=== PATIENT | male | born 1990 | race Caucasian/White ===

== ENCOUNTER 2025-05-11 22:17 | Inpatient (IN) ==
--- NOTE | 2025-05-11 22:46 | Emergency Department Note ---
History of Present Illness General Chief complaint: Back Injury/Pain Stated complaint: BACK PAIN COMPLICATIONS FROM SURGERY Time Seen by Provider: 05/11/25 22:25 History of Present Illness Maximum Pain Intensity: 9 This 35-year-old male who had back surgery 2 months ago by orthopedic spine presents ER for worsening pain in his leg. He states he called his parts specialist and was advised to get an MRI. Patient complains of severe pain to the right foot that tracks up to the leg. Patient denies loss of bowel bladder control, saddle anesthesia, fever, chills, leg weakness. Dr Wolf is his surgeon. Home Medications Medication Instructions Recorded Confirmed Type baclofen 10 mg tablet 10 mg PO TID PRN muscle spasm #60 04/04/25 05/12/25 Rx tabs gabapentin 600 mg tablet 600 mg PO TID #90 tabs 05/01/25 05/12/25 Rx Allergies Allergy/AdvReac Type Severity Reaction Status Date / Time promethazine Allergy Intermediate "FREAKED Verified 04/03/25 10:56 OUT" Past Med/Surg History Problem List (Updated 05/12/25 @ 01:39 by Demi Scales PA-C) Lumbar radiculopathy (Acute) Intractable low back pain (Acute) Paresthesia of right foot Right foot pain S/P lumbar discectomy Lumbosacral stenosis without neurogenic claudication Disc degeneration, lumbosacral Lumbosacral radiculopathy Lumbosacral disc herniation L5-S1 Medical History Chewing tobacco nicotine dependence Right-sided low back pain with sciatica Obesity (BMI 30.0-34.9) Surgical History No pertinent past surgical history Family History Grandmother (Maternal) Diabetes Brother Diabetes Denies family history of Sudden Ovarian cancer Prostate cancer Heart disease Myocardial infarction Breast cancer Lung cancer Cancer Social History Smoking Status: Never smoker Tobacco Type: Smokeless Tobacco (Dip or Chew) Second Hand Exposure: No; Do You Dip or Chew Tobacco: Yes; Hx Alcohol Use: No Hx Substance Use: No Preferred Language: Icelandic Communication Ability: Effective Reed Polisher Required: No Beliefs That Will Affect Care: None marital status: Current Living Situation: Spouse current occupational status: employed current occupation: Construction (Builder) How many Children do You have: 1 Feels Safe at Home: Yes Childhood Exposure to Second-Hand Smoke: No Diet: regular caffeine: Yes Dental Care, Regularly: No Physical Activity Frequency: Daily Assistive Devices: None Review of Systems A total of 10 systems reviewed and were otherwise negative Physical Exam Vital Signs Vital Signs - 24 hr 05/11/25 22:17 05/11/25 22:20 05/11/25 22:34 Temperature 36.9 C Temperature Source Temporal Artery Scan Pulse Rate 91 H 86 Pulse Rate [Finger] Pulse Rate from SpO2 Sensor Respiratory Rate 19 Respiratory Effort / Characteristics Non-Labored Non-Labored Spontaneous Respiratory Depth Normal Normal Blood Pressure 130/93 Blood Pressure Mean 105 Pulse Oximetry 97 Oxygen Delivery Method Room Air Sepsis Recent Fever Within 48 Hours No Sepsis New/Unexplained Change in Mental Status N/A Sepsis Action Taken by Nursing No Action Required 05/11/25 22:39 05/11/25 23:03 05/11/25 23:15 Temperature Temperature Source Pulse Rate 79 72 75 Pulse Rate [Finger] Pulse Rate from SpO2 Sensor 81 75 Respiratory Rate 22 21 18 Respiratory Effort / Characteristics Respiratory Depth Blood Pressure Blood Pressure Mean Pulse Oximetry 95 98 Oxygen Delivery Method Sepsis Recent Fever Within 48 Hours Sepsis New/Unexplained Change in Mental Status Sepsis Action Taken by Nursing 05/11/25 23:21 05/11/25 23:54 05/12/25 00:00 Temperature Temperature Source Pulse Rate Pulse Rate [Finger] 87 Pulse Rate from SpO2 Sensor 68 74 Respiratory Rate 16 18 Respiratory Effort / Characteristics Respiratory Depth Blood Pressure Blood Pressure Mean Pulse Oximetry 97 97 97 Oxygen Delivery Method Room Air Sepsis Recent Fever Within 48 Hours Sepsis New/Unexplained Change in Mental Status Sepsis Action Taken by Nursing 05/12/25 00:03 05/12/25 00:15 05/12/25 00:20 Temperature Temperature Source Pulse Rate Pulse Rate [Finger] Pulse Rate from SpO2 Sensor 77 79 Respiratory Rate 14 17 Respiratory Effort / Characteristics Respiratory Depth Blood Pressure 130/94 Blood Pressure Mean 104 Pulse Oximetry 96 96 Oxygen Delivery Method Sepsis Recent Fever Within 48 Hours Sepsis New/Unexplained Change in Mental Status Sepsis Action Taken by Nursing 05/12/25 00:20 05/12/25 01:00 05/12/25 01:15 Temperature Temperature Source Pulse Rate 67 65 Pulse Rate [Finger] Pulse Rate from SpO2 Sensor 66 65 Respiratory Rate 19 15 Respiratory Effort / Characteristics Respiratory Depth Blood Pressure 130/94 Blood Pressure Mean 104 Pulse Oximetry 96 95 Oxygen Delivery Method Sepsis Recent Fever Within 48 Hours Sepsis New/Unexplained Change in Mental Status Sepsis Action Taken by Nursing 05/12/25 01:27 05/12/25 01:36 05/12/25 01:53 Temperature Temperature Source Pulse Rate 61 65 Pulse Rate [Finger] Pulse Rate from SpO2 Sensor 62 69 Respiratory Rate 14 17 Respiratory Effort / Characteristics Respiratory Depth Blood Pressure 131/83 Blood Pressure Mean 94 Pulse Oximetry 96 96 Oxygen Delivery Method Sepsis Recent Fever Within 48 Hours Sepsis New/Unexplained Change in Mental Status Sepsis Action Taken by Nursing 05/12/25 01:57 05/12/25 02:00 05/12/25 02:06 Temperature Temperature Source Pulse Rate 58 L 64 Pulse Rate [Finger] Pulse Rate from SpO2 Sensor 60 69 Respiratory Rate 19 13 Respiratory Effort / Characteristics Non-Labored Respiratory Depth Normal Blood Pressure Blood Pressure Mean Pulse Oximetry 97 93 Oxygen Delivery Method Sepsis Recent Fever Within 48 Hours Sepsis New/Unexplained Change in Mental Status Sepsis Action Taken by Nursing 05/12/25 02:26 Temperature Temperature Source Pulse Rate 56 L Pulse Rate [Finger] Pulse Rate from SpO2 Sensor Respiratory Rate Respiratory Effort / Characteristics Respiratory Depth Blood Pressure Blood Pressure Mean Pulse Oximetry Oxygen Delivery Method Sepsis Recent Fever Within 48 Hours Sepsis New/Unexplained Change in Mental Status Sepsis Action Taken by Nursing VITALS: Vitals are noted on the nurse's note and reviewed by myself. Vital signs stable. GENERAL: White male with present, in no acute distress, nondiaphoretic, well-developed well-nourished. SKIN: Capillary reflex less than 2 seconds. HEENT: Normocephalic. PERRLA. EOMI. Nares patent. Mucous membranes moist. Neck is supple without nuchal rigidity. HEART: Regular rate and rhythm LUNGS: Clear to auscultation bilaterally without wheezes, rales or rhonchi. No retractions or accessory muscle use. ABDOMEN: Positive bowel sounds x 4. Normal tympanic percussion. Soft, nontender, without masses or organomegaly. Cowart sign negative. No guarding or rebound tenderness. no CVA tenderness MUSCULOSKELETAL: No gross musculoskeletal defects. No thoracic or lumbar tenderness. Positive straight leg raise on the right. Negative on the left. NEURO: Patient was alert and oriented to person place and time. No focal neurological deficits. Course Administered Medications Hydromorphone HCl (Hydromorphone Inj 0.5 Mg/0.5 Ml Syr) 0.5 mg IV Q15M PRN PRN Reason: Pain Stop: 05/26/25 01:37 Last Admin: 05/12/25 03:01 Dose: 0.5 mg Documented By: Admin: 05/12/25 01:51 Dose: 0.5 mg Documented By: ESPERANZA Discontinued Medications Ketorolac Tromethamine (Ketorolac Tromethamine 15 Mg/Ml Vial) 10 mg IV NOW STA Stop: 05/11/25 22:39 Last Admin: 05/11/25 22:59 Dose: 10 mg Documented By: ESPERANZA Morphine Sulfate (Morphine Sulfate 4 Mg/Ml 1 Ml Carp\\Vial) 4 mg IV NOW STA Stop: 05/11/25 22:39 Last Admin: 05/11/25 22:59 Dose: 4 mg Documented By: ESPERANZA Morphine Sulfate (Morphine Sulfate 4 Mg/Ml 1 Ml Carp\\Vial) 4 mg IV NOW STA Stop: 05/12/25 00:20 Last Admin: 05/12/25 00:31 Dose: 4 mg Documented By: RUBIA Ondansetron HCl (Ondansetron Inj 2 Mg/Ml 2 Ml Vial) 4 mg IV NOW STA Stop: 05/11/25 22:39 Last Admin: 05/11/25 22:59 Dose: 4 mg Documented By: ESPERANZA Medical Decision Making Medical Records Attestation: I reviewed the patient's medical records. Home Medications Current Medication List: was personally reviewed by me Laboratory Data Attestation: I reviewed the patient's lab results. 05/11/25 23:00 05/11/25 23:00 Lab Results 05/11/25 Range/Units 23:00 WBC 10.22 (4.8-10.8) K/ul RBC 5.12 (4.70-6.10) M/uL Hgb 15.3 (14.0-18.0) g/dl Hct 43.9 (42.0-52.0) % MCV 85.7 (80.0-100.0) fL MCH 29.9 (25.0-34.0) pg MCHC 34.9 (32.0-36.0) g/dL RDW Std Deviation 36.2 L (36.4-46.3) fL RDW Coeff of Ruben 11.6 (11.5-14.5) % Plt Count 238 (130-400) K/uL MPV 9.5 (9.4-12.4) fL Immature Gran % (Auto) 0.3 % Neut % (Auto) 48.9 % Lymph % (Auto) 39.5 % Creek % (Auto) 9.7 % Eos % (Auto) 1.3 % Baso % (Auto) 0.3 % Neut # (Auto) 5.00 (1.40-6.50) K/uL Lymph # (Auto) 4.04 H (1.20-3.40) K/uL Creek # (Auto) 0.99 H (0.11-0.59) K/uL Eos # (Auto) 0.13 (0.00-0.50) K/uL Baso # (Auto) 0.03 (0.00-0.20) K/uL Immature Gran # (Auto) 0.03 (0.01-0.20) K/uL Sodium 138 (136-145) mmol/L Potassium 4.3 (3.5-5.1) mmol/L Chloride 107 (98-107) mmol/L Carbon Dioxide 23 (21-32) mmol/L Anion Gap 8 (3-11) BUN 13 (6-23) mg/dl Creatinine 0.99 (0.6-1.4) mg/dl Est Cr Clr Drug Dosing 131.7 ml/min eGFR 103.15 BUN/Creatinine Ratio 13.1 (10-20) Glucose 97 (70-99(Fasting)) mg/dl Calcium 9.3 (8.6-10.3) mg/dl Total Bilirubin 1.4 H (0.2-1.0) mg/dl AST 36 (13-39) U/L ALT 46 (7-52) U/L Alkaline Phosphatase 61 (34-104) U/L Total Protein 6.7 (6.0-8.3) gm/dl Albumin 4.2 (3.4-5.0) gm/dl Globulin 2.5 (2.5-4.0) gm/dl Albumin/Globulin Ratio 1.7 (0.9-2) Imaging Data Attestation: I personally reviewed and interpreted this imaging study as follows: Radiologist's Impression: Lumbar Spine MRI 05/11/25 22:38 Exam(s): MRI L SPINE Without Contrast EXAM: MR Lumbar Spine Without Intravenous Contrast CLINICAL HISTORY: Reason for exam: severe pain, right leg pain/weak. TECHNIQUE: Magnetic resonance images of the lumbar spine without intravenous contrast in multiple planes. COMPARISON: Comparison made to prior MRI of the lumbar spine from April 03, 2025. FINDINGS: Vertebrae: There are 5 lumbar type vertebral bodies with a mild generalized curved to the left and shallow lumbar lordosis. There is a remote fracture deformity of the L1 vertebral body. There is normal vertebral body height and alignment. The bone marrow signal is heterogeneous with reactive endplate changes. No acute fracture. Spinal cord: The conus is normal size, shape and signal characteristics, terminating at T12-L1. Soft tissues: The iliopsoas, paraspinous, and interspinous soft tissues are unremarkable. The aorta and IVC flow voids are intact. The visualized kidneys are unremarkable. DISCS/SPINAL CANAL/NEURAL FORAMINA: L1-L2: The intervertebral disc is normal. L2-L3: The intervertebral disc is normal. L3-L4: The intervertebral disc is normal. L4-L5: There is mild disc degeneration with annular disc bulge causing a mild subarticular recess stenosis with disc extending to the neural foramina causing a mild right stenosis without evidence of neural impingement. L5-S1: Advanced disc degeneration with annular disc bulge and superimposed right 8.6 mm disc protrusion posteriorly displacing and impinging the transiting right S1 nerve root in the subarticular recess. There is disc and osteophyte extending to the neural foramina causing mild bilateral stenosis IMPRESSION: Advanced disc degeneration at L5-S1 with annular disc bulge and superimposed 8.6 mm right disc protrusion posteriorly displacing and impinging the transiting right S1 nerve root in the subarticular recess. Note: Compared to prior MRI of the lumbar spine from April 03, 2025, there is been interval decrease in size of the right disc herniation at L5-S1 Electronically signed by: Claudine Lamar MD 05/12/25 01:25 AM [facility] Narrative Prior records/ancillary studies reviewed. Triage Nursing notes reviewed. Additional history obtained from family. The patient's history was concerning for back pain. Differential diagnosis: Etiologies such as musculoskeletal, disc herniation, fracture, aortic disease, metastatic disease, cord compression, discitis, infection, renal colic, gastrointestinal, acute exacerbation of chronic back pain, sciatica, cauda equina, as well as others were entertained. Physical findings: As above. No focal neurologic findings noted. ER treatment provided: Toradol, morphine, Zofran was ordered On reassessment the patient felt better. Diagnostics interpreted by me: The labs Independently Interpreted by myself revealed no worrisome leukocytosis, stable H&H, glucose 97 Imaging studies: Imaging was reviewed and read by radiology Consultation: A consultation was placed with hospitalist. The case was discussed and diagnostics were reviewed. Patient will be evaluated for possible admission. This appears to be consistent with intractable low back pain. Patient states he was in too much pain to go home. He was given several rounds of pain meds. He was still extremely uncomfortable. Imaging shows no significant changes. Medicine was consulted and the case was discussed. He will be evaluated for possible admission.. By the evaluation outlined above emergent etiologies such as fracture, aortic disease, metastatic disease, infection, renal colic, gastrointestinal, cord compression, cauda equina, as well as others were deemed relatively unlikely. The pt informed about the findings as listed above. All questions were answered and pleased with the treatment. The chart was completed utilizing [employer] Speech voice recognition software. Grammatical errors, random word insertions, pronoun errors, and incomplete sentences are an occassional consequence of this system due to software limitations, ambient noise, and hardware issues. Any formal questions or concerns about the content, text, or information contained within the body of this dictation should be directly addressed to the physician assistant professor of mathematics for clarification. Impression & Plan Intractable low back pain, Lumbar radiculopathy Discharge Plan Visit Data Chief Complaint: Back Injury/Pain Stated Complaint: BACK PAIN COMPLICATIONS FROM SURGERY ED Provider: Mundo Rivera ED Midlevel Provider: Demi Scales Discharge Problem: Intractable low back pain, Lumbar radiculopathy Patient Disposition: Being Evaluated by Hospitalist Condition: Good Forms Stand Alone Forms: My [facility] My [employer] Prescriptions Prescriptions: No Action gabapentin 600 mg tablet 600 mg PO TID Qty: 90 1RF baclofen 10 mg Tablet 10 mg PO TID PRN (Reason: muscle spasm) Qty: 60 0RF Referrals Referrals: Chace Lin DO [Primary Care Provider] -
[2025-05-11] MEDS: ONDANSETRON INJ 2 MG/ML 2 ML VIAL IV STA (22:59)
[2025-05-11] MEDS: KETOROLAC TROMETHAMINE 15 MG/ML VIAL IV STA (22:59)
[2025-05-11] MEDS: MoRPHine SULFATE 4 MG/ML 1 ML CARP\\VIAL IV STA (22:59)
[2025-05-11 23:14] LABS: Basophils # (auto) 0.03 K/uL (0.00-0.20); Basophils % (auto) 0.3 %; Eosinophils # (auto) 0.13 K/uL (0.00-0.50); Eosinophils % (auto) 1.3 %; Hematocrit (blood only) 43.9 % (42.0-52.0); Hemoglobin 15.3 g/dl (14.0-18.0); Immature Granulocytes # (auto) 0.03 K/uL (0.01-0.20); Immature Granulocytes % (auto) 0.3 %; Lymphocytes # (auto) 4.04 K/uL (1.20-3.40); Lymphocytes % (auto) 39.5 %; Mean Corpuscular Hemoglobin 29.9 pg (25.0-34.0); Mean Corpuscular Hgb Conc 34.9 g/dL (32.0-36.0); Mean Corpuscular Volume 85.7 fL (80.0-100.0); Mean Platelet Volume 9.5 fL (9.4-12.4); Monocytes # (auto) 0.99 K/uL (0.11-0.59); Monocytes % (auto) 9.7 %; Neutrophils % (auto) 48.9 %; Platelet Count 238 K/uL (130-400); RDW Coefficient of Variation 11.6 % (11.5-14.5); RDW Standard Deviation 36.2 fL (36.4-46.3); Red Blood Count 5.12 M/uL (4.70-6.10); White Blood Count 10.22 K/ul (4.8-10.8)
[2025-05-11 23:38] LABS: Bilirubin,Total 1.4 mg/dl (0.2-1.0); Calcium 9.3 mg/dl (8.6-10.3); Potassium 4.3 mmol/L (3.5-5.1)
[2025-05-11 23:44] LABS: Albumin Globulin Ratio 1.7 (0.9-2); BUN Creatinine Ratio 13.1 (10-20); Creatinine Clr Calc Pharmacy 131.7 ml/min; Globulin 2.5 gm/dl (2.5-4.0); Total Protein 6.7 gm/dl (6.0-8.3)
[2025-05-12] MEDS: MoRPHine SULFATE 4 MG/ML 1 ML CARP\\VIAL IV STA (00:31)
--- NOTE | 2025-05-12 01:26 | Magnetic Resonance Report ---
Exam(s): MRI L SPINE Without Contrast EXAM: MR Lumbar Spine Without Intravenous Contrast CLINICAL HISTORY: Reason for exam: severe pain, right leg pain/weak. TECHNIQUE: Magnetic resonance images of the lumbar spine without intravenous contrast in multiple planes. COMPARISON: Comparison made to prior MRI of the lumbar spine from April 03, 2025. FINDINGS: Vertebrae: There are 5 lumbar type vertebral bodies with a mild generalized curved to the left and shallow lumbar lordosis. There is a remote fracture deformity of the L1 vertebral body. There is normal vertebral body height and alignment. The bone marrow signal is heterogeneous with reactive endplate changes. No acute fracture. Spinal cord: The conus is normal size, shape and signal characteristics, terminating at T12-L1. Soft tissues: The iliopsoas, paraspinous, and interspinous soft tissues are unremarkable. The aorta and IVC flow voids are intact. The visualized kidneys are unremarkable. DISCS/SPINAL CANAL/NEURAL FORAMINA: L1-L2: The intervertebral disc is normal. L2-L3: The intervertebral disc is normal. L3-L4: The intervertebral disc is normal. L4-L5: There is mild disc degeneration with annular disc bulge causing a mild subarticular recess stenosis with disc extending to the neural foramina causing a mild right stenosis without evidence of neural impingement. L5-S1: Advanced disc degeneration with annular disc bulge and superimposed right 8.6 mm disc protrusion posteriorly displacing and impinging the transiting right S1 nerve root in the subarticular recess. There is disc and osteophyte extending to the neural foramina causing mild bilateral stenosis IMPRESSION: Advanced disc degeneration at L5-S1 with annular disc bulge and superimposed 8.6 mm right disc protrusion posteriorly displacing and impinging the transiting right S1 nerve root in the subarticular recess. Note: Compared to prior MRI of the lumbar spine from April 03, 2025, there is been interval decrease in size of the right disc herniation at L5-S1 Electronically signed by: Claudine Lamar MD 05/12/25 01:25 AM
[2025-05-12] MEDS: HYDROmorphone INJ 0.5 MG/0.5 ML SYR IV PRN ×3 (01:51→16:13)
--- NOTE | 2025-05-12 02:17 | History & Physical Report ---
Date of Service May 12, 2025 Assessment & Plan (1) Lumbar radiculopathy: (2) Right foot pain: (3) Paresthesia of right foot: (4) Lumbosacral disc herniation: Plan #Lumbar radiculopathy/right-sided sciatica - MRI-Lumbar Spine (05/11/25) Advanced disc degeneration at L5-S1 with annular disc bulge and superimposed 8.6 mm right disc protrusion posteriorly displacing and impinging the transiting right S1 nerve root in the subarticular recess. Note: Compared to prior MRI of the lumbar spine from April 03, 2025, there is been interval decrease in size of the right disc herniation at L5-S1 from 1.3 cm to 0.85 cm - pt Rx'ed oxycodone-acetaminophen (5:325 mg) x 6 daily, for 7 days on 04/04/25 but only took 1 tablet (per pt) Pain Management - continue patient's gabapentin, 600 mg, TID; baclofen, 10 mg, PO, TID during hospital stay - dexamethasone, IV, 6 mg, one-time dose before transfer - dexamethasone, IV, 4mg, TID - Dilaudid, 0.5 mg, IV, q3hr - order KPad - pantoprazole, 40 mg, PO, daily for stress ulcer prevention - consult Pain Mgmt, consult pt's Orthopedic Surgeon #Hyperbilirubinemia - chronic, incidental, possibly due to physiological stress - consider trending CMP as outpt Code status: Full code Disposition: Med-Surg FENGI: Regular diet VTE Prophylaxis: SCD's, Knee-high History of Present Illness Chief Complaint: right-sided radiculopathy Primary Care Provider: Chcae Lin, DO Patient is a 35 yo M w/ a PMHx of lumbar radiculopathy (s/p lumbar discectomy), w/ associated Sx such as r. foot paresthesia and pain, lumbosacral disc degeneration and disc herniation noted on previous imaging, and chewing tobacco- dependence, presenting today w/ poorly controlled back pain radiating down r. leg. Patient has been taking gabapentin, 600 mg, PO, TID; baclofen, 10 mg, PO, TID; and methylprednisolone, 4mg, PO, daily. He was also prescribed a week-long course of oxycodone-acetaminophen (5-325 mg), 6 tabs daily, for 7 days but states he only took one of those pills. Patient denies any back pain but does endorse r. lateral and r. dorsal foot pain, paresthesias (burning, stabbing sensation); this pain starts around the Vinson heel area. Patient also endorses some r. thigh posterior pain. His pain does seem to be somewhat position- dependent, worsening when sitting or with his spine in a flexed posture. He notes very little improvement of the pain after surgery and possibly some worsening of that pain over the last few weeks. Allergies Allergy/AdvReac Type Severity Reaction Status Date / Time promethazine Allergy Intermediate "FREAKED Verified 04/03/25 10:56 OUT" Home Medications Medication Instructions Recorded Confirmed Type baclofen 10 mg tablet 10 mg PO TID PRN muscle spasm #60 04/04/25 05/12/25 Rx tabs gabapentin 600 mg tablet 600 mg PO TID #90 tabs 05/01/25 05/12/25 Rx Past Med/Surg History Problem List (Updated 05/12/25 @ 01:39 by Demi Scales PA-C) Lumbar radiculopathy (Acute) Intractable low back pain (Acute) Paresthesia of right foot Right foot pain S/P lumbar discectomy Lumbosacral stenosis without neurogenic claudication Disc degeneration, lumbosacral Lumbosacral radiculopathy Lumbosacral disc herniation L5-S1 Medical History Chewing tobacco nicotine dependence Right-sided low back pain with sciatica Obesity (BMI 30.0-34.9) Surgical History No pertinent past surgical history Family History Grandmother (Maternal) Diabetes Brother Diabetes Denies family history of Sudden Ovarian cancer Prostate cancer Heart disease Myocardial infarction Breast cancer Lung cancer Cancer Social History Smoking Status: Never smoker Tobacco Type: Smokeless Tobacco (Dip or Chew) Second Hand Exposure: No; Do You Dip or Chew Tobacco: Yes; Hx Alcohol Use: No Hx Substance Use: No Preferred Language: Serbian Communication Ability: Effective Hospitality Director Required: No Beliefs That Will Affect Care: None marital status: Current Living Situation: Spouse current occupational status: employed 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 lateral foot especially) Physical Exam Constitutional: WD/WN, vitals as above Respiratory: normal respiratory effort, lungs clear to auscultation Cardiovascular: RRR, no murmur, no edema Extremities: no calf tenderness Neurologic: moves all extremities and awake; + abnormal touch/pain/proprioception (allodynia of r. lateral and dorsal foot noted) decreased hip flexion of r. side secondary to pain Psychiatric: A+Ox3, euthymic affect Results & Data Results & Data Vital Signs (Past 12 Hours) Vital Signs Temp Pulse Pulse Resp BP Pulse Ox O2 Del Method 05/12/25 00:00 87 18 97 Room Air 05/11/25 22:34 86 05/11/25 22:20 36.9 C 91 H 19 130/93 97 Room Air Supervising Physician Co-Signing Physician Notes Attending Attestation & Admit Note: Pt seen/examined, chart reviewed, admit care plan d/w resident physician Dr Fernando Ross. I agree w/ the hedrick components of his admission documentation. 35yo male with recent Right L5-S1 Discectomy by Dr Mundo Wolf on 04/04/25 due to severe right-sided S1 radiculopathy presents with ongoing neuropathic pain in his right foot following the S1 dermatome. (+/- right L5 dermatome, but unlikely). His neuropathic pain has gotten to the point that he is uncomfortable most times of the day and it is difficult to weight bear. He has what sounds like hyperalgesia of the right foot as well. Denies any significant back pain. He also reports mild numbness in the posterior right thigh. These symptoms have persisted despite taking gabapentin 600mg TID. PMH/PSH/allergies/meds/sochx/famhx - reviewed VSS, afebrile gen - lying in bed, appears uncomfortable; WD, WN heart - RRR, s1 s2, no murmur lungs - CTA b/l abd - soft NT ND BS+ ext - no edema, pulses 2+ b/l skin - right foot - no erythema or swelling neuro - patellar reflexes 2+ b/l; hip flexion 5/5 b/l; left ankle dorsiflexion/plantarflexion 5/5; right ankle dorsiflexion 4/5, plantarflexion 4- 5/5; normal bulk/tone b/l legs lumbar spine MRI findings noted CBC w/ normal WBC count BMP w/ normal Cr t.bili minimally elevated; was also elevated in March A/P: Intractable/refractory right-sided S1 radiculopathy despite L5-S1 diskectomy in mid-March. plan - consult Dr Wolf to ensure no additional surgical intervention needed. Consult pain management for consideration of steroid injection if felt to be a candidate. Cont gabapentin TID; could consider mild dose increase but suspect this would not be helpful. Start IV dexamethasone - 6mg now, followed by 4mg TID. Cont dilaudid IV prn. Tylenol, baclofen prn. Appreciate ortho & pain management consultations. Mild hyperbilirubinemia likely Gilbert's syndrome, but would obtain direct bili before making that final conclusion. Pt's updated at bedside. Celso Martin MD
[2025-05-12] MEDS ORDERED: dexAMETHasone 6 MG in SYRINGE 0 ML IV ONE (03:13)
[2025-05-12] MEDS ORDERED: MELATONIN 3 MG TAB PO PRN (03:29)
[2025-05-12] MEDS ORDERED: ONDANSETRON INJ 2 MG/ML 2 ML VIAL IV PRN (03:29)
[2025-05-12] MEDS ORDERED: ACETAMINOPHEN 500 MG TAB PO PRN (03:39)
[2025-05-12] MEDS ORDERED: POLYETHYLENE (MIRALAX) 17 GM PACK PO PRN (03:39)
[2025-05-12] MEDS: DEXAMETHASONE SOD INJ 4 MG/ML VIAL IV STA (03:54)
--- NOTE | 2025-05-12 08:15 | Hospitalist Progress Note ---
Date of Service May 12, 2025 Assessment & Plan (1) Lumbar radiculopathy: (2) Right foot pain: (3) Paresthesia of right foot: (4) Lumbosacral disc herniation: Plan This is a 35-year-old male who presents on 05/11 for lumbar radiculopathy and right foot paresthesias/pain. #Lumbar radiculopathy/right-sided sciatica - MRI-Lumbar Spine (05/11/25) Advanced disc degeneration at L5-S1 with annular disc bulge and superimposed 8.6 mm right disc protrusion posteriorly displacing and impinging the transiting right S1 nerve root in the subarticular recess. Note: Compared to prior MRI of the lumbar spine from April 03, 2025, there is been interval decrease in size of the right disc herniation at L5-S1 from 1.3 cm to 0.85 cm Pain management as follows: - Continue gabapentin 600 mg TID - Continue baclofen 10 mg p.o. TID - Dexamethasone 4 mg IV TID - Dilaudid 0.5 mg IV q2h PRN - Scheduled acetaminophen 1000 mg p.o. q8h - Kpad - Pantoprazole 40 mg p.o. daily for stress ulcer prevention - Pain management consult appreciate - Orthospine consult appreciated Will plan for L5-S1 transforaminal lumbar interbody fusion with Dr. Wolf on 05/13 - N.p.o. at midnight, hold blood thinners/NSAIDs #Hyperbilirubinemia - Chronic, incidental, possibly due to physiological stress - Trend CMP Code status: Full code Disposition: Med-Surg FENGI: Regular diet VTE Prophylaxis: SCDs Admission and Anticipated Discharge Date Admission Date: May 12, 2025 Supervising Physician Co-Signing Physician Notes The patient was not seen by me. The chart was reviewed. Case discussed with REGINE Lawson. Agree with assessment and plan Subjective Mr. Pete reports he is still having significant right foot pain this afternoon. He describes it as a constant, throbbing pain that is not alleviated by current pain regimen. He reports that morphine did not help, and that the Dilaudid only lasts for approximately 10 minutes before his pain returns. He is also having numbness and tingling going down the right leg. He denies any back pain. Occasionally, patient will tense his stomach, but he tightens this due to the pain. He has been tried on all different kinds of pain medications prior to coming into the hospital, including gabapentin 600 mg 3 times daily, which she reports "does nothing". He is also been tried on antispasmodics, and lidocaine patches, which he does not believe helps. ROS: Pain with radiation down the right leg, and tight thigh/inner hip. Patient denies fever, chills, chest pain, chest palpitations, SOB, abdominal pain, N/V/C, saddle anesthesia, or fecal/urinary incontinence. Review of Systems Review of Systems: See HPI above Physical Exam Physical Exam: General: Moderate distress secondary to right leg pain; non-toxic appearing; well-nourished; cooperative; SpO2 94% on RA HEENT: normocephalic, atraumatic; no scleral icterus; PERRLA; vision and hearing intact Neck: supple; no lymphadenopathy; trachea midline Skin: warm, dry without signs of tenting; no cyanosis; no rashes, bruising, lesions, or erythema noted CV: chest wall NTP; RRR; S1/S2 normal; no murmurs/rubs/gallops; pulses intact and symmetric at radial, DP, and PT Lungs: no acute respiratory distress; symmetrical chest wall expansion; clear breath sounds across all lung [place] w/o adventitious sounds; no wheezing ABD: Soft, NTP; BS present; no rebound/guarding; no distention Back: Upper spine NTP; lower spine NTP; negative CVA tenderness bilaterally Right LE: TTP; patient demonstrates ability to wiggle toes and lift leg (albeit with pain) MSK: Patient does exhibit tics, which he reports are "muscle spasms" from tig htening of his stomach due to pain; no edema noted in the LEs b/l, nonerythematous Neuro: A&Ox3; normal mood and affect; fluent speech Results & Data Results & Data Vital Signs (Past 12 Hours) Vital Signs Temp Pulse Pulse Resp BP BP Pulse Ox 05/12/25 05:32 36.4 C L 65 18 135/79 97 05/12/25 05:29 57 L 16 133/82 97 05/12/25 04:00 61 18 129/86 96 05/12/25 02:26 56 L 05/12/25 02:06 64 13 93 05/12/25 01:57 58 L 19 97 05/12/25 01:53 131/83 05/12/25 01:36 65 17 96 05/12/25 01:27 61 14 96 05/12/25 01:15 65 15 95 05/12/25 01:00 67 19 96 05/12/25 00:20 130/94 05/12/25 00:20 130/94 05/12/25 00:15 17 96 05/12/25 00:03 14 96 05/12/25 00:00 87 18 97 05/11/25 23:54 16 97 05/11/25 23:21 97 05/11/25 23:15 75 18 98 05/11/25 23:03 72 21 05/11/25 22:39 79 22 95 05/11/25 22:34 86 05/11/25 22:20 36.9 C 91 H 19 130/93 97 O2 Del Method 05/12/25 05:32 Room Air 05/12/25 05:29 Room Air 05/12/25 04:00 Room Air 05/12/25 02:26 05/12/25 02:06 05/12/25 01:57 05/12/25 01:53 05/12/25 01:36 05/12/25 01:27 05/12/25 01:15 05/12/25 01:00 05/12/25 00:20 05/12/25 00:20 05/12/25 00:15 05/12/25 00:03 05/12/25 00:00 Room Air 05/11/25 23:54 05/11/25 23:21 05/11/25 23:15 05/11/25 23:03 05/11/25 22:39 05/11/25 22:34 05/11/25 22:20 Room Air PG Care Time/CCT Total # of Minutes Spent Total Time Spent with Patient: Total time spent is greater than 50% in coordination of care (as documented) at patient's floor/unit and/or counseling patient: Coding [place] [address] SUB INP/OBS CARE 2/35MIN Patient Type Established Medical Decision Making Moderate Complexity Diagnoses Lumbar radiculopathy M54.16 Right foot pain M79.671 Paresthesia of right foot R20.2 Lumbosacral disc herniation M51.27
--- NOTE | 2025-05-12 09:45 | Pain Management Consultation ---
Date of Consultation May 12, 2025 Assessment & Plan (1) Lumbosacral radiculopathy: * Patient reports intractable pain of the right foot with associated paresthesias. He reports no significant improvement with gabapentin. Status post right L5-S1 discectomy 04/04/2025 * Patient being managed outpatient with Dr. Wolf. He has been consulted. Await his input * In the event that orthospine feels that this is not surgical, could consider the patient for outpatient right transforaminal epidural steroid injection. * Continue gabapentin, baclofen * Recommend inflammatory markers and procalcitonin to rule out osteomyelitis or other infectious process * Glad to see the patient in the office on discharge (2) Lumbosacral disc herniation: * Previous right L5-S1 discectomy. Defer further care to orthospine Plan Case discussed personally with Dr. Mckeon History of Present Illness Reason for Consultation: Intractable pain Attending Physician: Slick Curry MD History of Present Illness Attending: Dr. Mckeon Mr. 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 He was previously admitted 04/04/2025 for intractable pain. MRI was completed and revealed disc herniation. Patient reported low back pain with radiation into his right leg and foot. He was seen by orthospine and underwent right L5-S1 discectomy. Patient was discharged and participated in physical therapy where he reports he had ongoing pain since the surgery. He was seen postoperatively by orthospine 04/20/2025 and instructed to advance his activity as tolerated. Gabapentin was increased at that time to 600 mg 3 times daily and patient was given a steroid taper as well as ketorolac to be taken at home. He reports he had improvement with this regimen. Patient reports that he was able to walk 1-1/2 to 2 miles but continue to have lower extremity pain, especially in his foot. Over the last 1 to 2 days, he developed severe right foot pain which is his chief complaint. He reports he has no lumbar pain and no pain in his leg other than his foot. He was to the point that he needs to rotate his foot inward in order to ambulate. He presented to the emergency department for further evaluation and was admitted overnight. Patient describes the pain as a sharp burning pain which is aggravated with any pressure on his foot. He denies any injury or trauma to his foot. Pain is aggravated with walking, prolonged sitting. It is alleviated with rest and elevation of the right foot. Pain at worst 10/10 and at best 5/10. Lumbar spine MRI 05/11/2025 Lumbar spine MRI 04/03/2025 Patient denies any bowel or bladder incontinence. No saddle anesthesia. No unusual bleeding or bruising. No evidence of malignancy. Patient has no other constitutional complaints. Allergies Allergy/AdvReac Type Severity Reaction Status Date / Time promethazine Allergy Intermediate "FREAKED Verified 04/03/25 10:56 OUT" Home Medications Medication Instructions Recorded Confirmed Type baclofen 10 mg tablet 10 mg PO TID PRN muscle spasm #60 04/04/25 05/12/25 Rx tabs gabapentin 600 mg tablet 600 mg PO TID #90 tabs 05/01/25 05/12/25 Rx Patient History Medical History Chewing tobacco nicotine dependence Right-sided low back pain with sciatica Obesity (BMI 30.0-34.9) Surgical History No pertinent past surgical history Family History Grandmother (Maternal) Diabetes Brother Diabetes Denies family history of Sudden Ovarian cancer Prostate cancer Heart disease Myocardial infarction Breast cancer Lung cancer Cancer Social History Smoking Status: Never smoker Tobacco Type: Smokeless Tobacco (Dip or Chew) Second Hand Exposure: No; Do You Dip or Chew Tobacco: Yes; Hx Alcohol Use: No Hx Substance Use: No Preferred Language: Nauruan Communication Ability: Effective Distribution Operations Supervisor Required: No Beliefs That Will Affect Care: None marital status: Current Living Situation: Spouse current occupational status: employed current occupation: Construction (Builder) How many Children do You have: 1 Feels Safe at Home: Yes Safety Concerns: Feels Safe At This Time Childhood Exposure to Second-Hand Smoke: No Diet: regular caffeine: Yes Dental Care, Regularly: No Physical Activity Frequency: Daily Assistive Devices: Cane Physical Exam Constitutional: Physical Exam: Constitutional: Well-developed, well-nourished, healthy-appearing, normal weight Psych: Awake, alert, and oriented 3 with normal affect and mood. Memory appears grossly intact, resting comfortably on examination Skin: No evidence of edema, erythema or skin breakdown. No rashes, lesions, ulcers, or induration noted. Musculoskeletal: Head is normocephalic and atraumatic, gait not observed. Lumbar: Lordotic curve: Loss of lumbar Lordosis Range of motion is not decreased Tenderness: Nontender over the axial midline Facet provocation: Negative bilaterally Straight leg raise: Negative bilaterally but gastrocnemius and hamstrings are very tight on the right Strength: Strength is equal bilaterally with 5 out of 5 strength in all planes Sensation of lower extremities: Intact bilaterally Deep tendon reflexes: Rated at 2/4 in bilateral patellar and Achilles tendons Myofascial spasm: No appreciable lumbar spasm. No discrete trigger points noted Greater trochanters: Nontender bilaterally Sacroiliac joints: Nontender bilaterally. Negative Gaenslen's test bilaterally. Negative FADIR. Negative DEYVI. Pathologic reflexes noted: None Neuro: No focal neurological deficits appreciated. Results (Pain Clinic) Diagnostic Review MRI Findings: Lumbar Spine MRI 05/11/25 22:38 Exam(s): MRI L SPINE Without Contrast EXAM: MR Lumbar Spine Without Intravenous Contrast CLINICAL HISTORY: Reason for exam: severe pain, right leg pain/weak. TECHNIQUE: Magnetic resonance images of the lumbar spine without intravenous contrast in multiple planes. COMPARISON: Comparison made to prior MRI of the lumbar spine from April 03, 2025. FINDINGS: Vertebrae: There are 5 lumbar type vertebral bodies with a mild generalized curved to the left and shallow lumbar lordosis. There is a remote fracture deformity of the L1 vertebral body. There is normal vertebral body height and alignment. The bone marrow signal is heterogeneous with reactive endplate changes. No acute fracture. Spinal cord: The conus is normal size, shape and signal characteristics, terminating at T12-L1. Soft tissues: The iliopsoas, paraspinous, and interspinous soft tissues are unremarkable. The aorta and IVC flow voids are intact. The visualized kidneys are unremarkable. DISCS/SPINAL CANAL/NEURAL FORAMINA: L1-L2: The intervertebral disc is normal. L2-L3: The intervertebral disc is normal. L3-L4: The intervertebral disc is normal. L4-L5: There is mild disc degeneration with annular disc bulge causing a mild subarticular recess stenosis with disc extending to the neural foramina causing a mild right stenosis without evidence of neural impingement. L5-S1: Advanced disc degeneration with annular disc bulge and superimposed right 8.6 mm disc protrusion posteriorly displacing and impinging the transiting right S1 nerve root in the subarticular recess. There is disc and osteophyte extending to the neural foramina causing mild bilateral stenosis IMPRESSION: Advanced disc degeneration at L5-S1 with annular disc bulge and superimposed 8.6 mm right disc protrusion posteriorly displacing and impinging the transiting right S1 nerve root in the subarticular recess. Note: Compared to prior MRI of the lumbar spine from April 03, 2025, there is been interval decrease in size of the right disc herniation at L5-S1 Electronically signed by: Claudine Lamar MD 05/12/25 01:25 AM Previous Records Review Previous Records: personally reviewed by me
[2025-05-12] MEDS: GABAPENTIN 600 MG TAB PO SCH (09:47)
[2025-05-12] MEDS: PANTOprazole 40 MG TAB PO SCH (09:47)
--- NOTE | 2025-05-12 11:04 | Orthopedic Consultation ---
Date of Service May 12, 2025 Assessment & Plan (1) Recurrent herniation of lumbar disc: (2) Lumbar radiculopathy: (3) Paresthesia of right foot: (4) Right foot pain: (5) S/P lumbar discectomy: Plan Explained to the patient that we basically have 4 options at this point for him to choose from. 1. He can continue to treat his symptoms conservatively with IV and oral medications to attempt some relief. 2. We could try and pursue an epidural steroid injection with the pain management clinic, in understanding that this would not be able to happen today, or even within the next few days or later this week. This would be something that could possibly take a week or more to arrange as an outpatient, as the pain management provider had informed the patient this morning that this is something that would need to be undertaken in an outpatient status. - Additionally, if the patient did undergo this route, he needs to understand that if it were to be relatively ineffective, it would necessitate waiting approximately 6 weeks before pursuing any instrumented fusion type of lumbar spine surgery procedure, as he would be at an increased risk for infection if performing the surgery too soon after a steroid injection. 3. We could go back into the L5-S1 level and perform further discectomy, but this really is not highly advised, as he is certainly at risk for further recurrent disc herniation at this level due to the already significantly degenerative condition of the L5-S1 disc. Thus, we could again end up back in the same scenario as we are currently in. 4. What would likely provide him the best chance at long-term relief would be performing a complete discectomy at L5-S1, followed by a transforaminal lumbar interbody fusion, with CT-guided placement of posterior screw and madi fusion instrumentation. Patient and his wished to think over these options, and they were instructed that we will contact them back later today to further discuss the options. History of Present Illness Reason for Consultation: Intractable right foot pain, RLE radiculopathy Requesting Physician: . Attending Physician: Slick Curry MD Patient is a 35-year-old male well-known to the [facility] for recent lumbar spine surgery consisting of L5-S1 discectomy performed on 04/04/2025. At his 2-week postoperative visit, he was noting significant improvement in pain in the right lower extremity comparative to the symptomatology he was experiencing prior to the surgery. He did report persistent numbness and tingling to the lateral aspect and plantar aspect of the right foot, but this was somewhat improved as well. He reported that he was no longer having any numbness in the calf region. The numbness he was continuing to have was also described as painful on the lateral aspect of his right foot. At that visit, it was discussed that it was felt his numbness/pain sensation would improve with some time. He was prescribed some Toradol and nerve glides with physical therapy to promote activity advancement. He also had his gabapentin increased to 600 mg TID. Despite this, the patient presented to the [facility] ED last night for worsening of the right foot pain. Today, he states that he really has no back pain at all. He is denying any issues with the operative site. He does get some intermittent pain/paresthesia down through the right buttocks and posterior right leg, but what bothers him the most is the right foot, stating that he cannot even touch the bottom or lateral part of the foot, as it incites severe pain. He has been tensing his abdominal muscles on and off due to the shooting/radiating pain he continues to experience. Patient did undergo an updated MRI last night, which is demonstrating some advanced disc degeneration and annular disc bulge at L5-S1, which also has a recurrent disc protrusion that is impinging upon the transiting right S1 nerve root in the subarticular recess. Allergies Allergy/AdvReac Type Severity Reaction Status Date / Time promethazine Allergy Intermediate "FREAKED Verified 04/03/25 10:56 OUT" Home Medications Medication Instructions Recorded Confirmed Type baclofen 10 mg tablet 10 mg PO TID PRN muscle spasm #60 04/04/25 05/12/25 Rx tabs gabapentin 600 mg tablet 600 mg PO TID #90 tabs 05/01/25 05/12/25 Rx Past Med/Surg History Problem List Recurrent herniation of lumbar disc L5-S1 Lumbar radiculopathy (Acute) Intractable low back pain (Acute) Paresthesia of right foot Right foot pain S/P lumbar discectomy Lumbosacral stenosis without neurogenic claudication Disc degeneration, lumbosacral Lumbosacral radiculopathy Lumbosacral disc herniation L5-S1 Medical History Chewing tobacco nicotine dependence Right-sided low back pain with sciatica Obesity (BMI 30.0-34.9) Surgical History No pertinent past surgical history Family History Grandmother (Maternal) Diabetes Brother Diabetes Denies family history of Sudden Ovarian cancer Prostate cancer Heart disease Myocardial infarction Breast cancer Lung cancer Cancer Social History Smoking Status: Never smoker Tobacco Type: Smokeless Tobacco (Dip or Chew) Second Hand Exposure: No; Do You Dip or Chew Tobacco: Yes; Hx Alcohol Use: No Hx Substance Use: No Preferred Language: Sinhala Communication Ability: Effective Etl Tester Required: No Beliefs That Will Affect Care: None marital status: Current Living Situation: Spouse current occupational status: employed current occupation: Construction (Builder) How many Children do You have: 1 Feels Safe at Home: Yes Safety Concerns: Feels Safe At This Time Childhood Exposure to Second-Hand Smoke: No Diet: regular caffeine: Yes Dental Care, Regularly: No Physical Activity Frequency: Daily Assistive Devices: Cane Review of Systems All systems reviewed & are unremarkable except as noted in HPI & below. Physical Exam GENERAL: Speech and cognition is intact. Mood and affect is appropriate. Does not appear in acute distress. Lying in bed and protecting the right foot from touch. Occasionally tenses in pain. HEAD: Normocephalic; atraumatic. NECK: Trachea is midline. CHEST: Regular chest respiration and excursion. EXTREMITIES: Distal sensation and pulses intact bilaterally. BACK: Well-healed lumbar cicatrix, which is without evidence of erythema, drainage, or abnormal warmth. NEURO: Awake, alert, and oriented x 3. Sensation intact to light touch of the bilateral L2-S1 dermatomes however, hyperesthesia noted to right S1 dermatome. SKIN: No lesions, erythema, or rashes noted. LOWER EXTREMITIES: R Hip flexion 5/5; hip extension 4+/5; knee extension 5/5; knee flexion 4+/5; ankle dorsiflexion 5/5; ankle plantar flexion unable to perform due to guarding/pain; EHL 5/5 Results & Data Results & Data Laboratory Results . Laboratory Results - last 24 hr 05/11/25 23:00 WBC 10.22 RBC 5.12 Hgb 15.3 Hct 43.9 MCV 85.7 MCH 29.9 MCHC 34.9 RDW Std Deviation 36.2 L RDW Coeff of Ruben 11.6 Plt Count 238 MPV 9.5 Immature Gran % (Auto) 0.3 Neut % (Auto) 48.9 Lymph % (Auto) 39.5 Burt % (Auto) 9.7 Eos % (Auto) 1.3 Baso % (Auto) 0.3 Neut # (Auto) 5.00 Lymph # (Auto) 4.04 H Burt # (Auto) 0.99 H Eos # (Auto) 0.13 Baso # (Auto) 0.03 Immature Gran # (Auto) 0.03 Sodium 138 Potassium 4.3 Chloride 107 Carbon Dioxide 23 Anion Gap 8 BUN 13 Creatinine 0.99 Est Cr Clr Drug Dosing 131.7 eGFR 103.15 BUN/Creatinine Ratio 13.1 Glucose 97 Calcium 9.3 Total Bilirubin 1.4 H AST 36 ALT 46 Alkaline Phosphatase 61 Total Protein 6.7 Albumin 4.2 Globulin 2.5 Albumin/Globulin Ratio 1.7 Diagnostic Findings . Lumbar Spine MRI 05/11/25 22:38 Exam(s): MRI L SPINE Without Contrast EXAM: MR Lumbar Spine Without Intravenous Contrast CLINICAL HISTORY: Reason for exam: severe pain, right leg pain/weak. TECHNIQUE: Magnetic resonance images of the lumbar spine without intravenous contrast in multiple planes. COMPARISON: Comparison made to prior MRI of the lumbar spine from April 03, 2025. FINDINGS: Vertebrae: There are 5 lumbar type vertebral bodies with a mild generalized curved to the left and shallow lumbar lordosis. There is a remote fracture deformity of the L1 vertebral body. There is normal vertebral body height and alignment. The bone marrow signal is heterogeneous with reactive endplate changes. No acute fracture. Spinal cord: The conus is normal size, shape and signal characteristics, terminating at T12-L1. Soft tissues: The iliopsoas, paraspinous, and interspinous soft tissues are unremarkable. The aorta and IVC flow voids are intact. The visualized kidneys are unremarkable. DISCS/SPINAL CANAL/NEURAL FORAMINA: L1-L2: The intervertebral disc is normal. L2-L3: The intervertebral disc is normal. L3-L4: The intervertebral disc is normal. L4-L5: There is mild disc degeneration with annular disc bulge causing a mild subarticular recess stenosis with disc extending to the neural foramina causing a mild right stenosis without evidence of neural impingement. L5-S1: Advanced disc degeneration with annular disc bulge and superimposed right 8.6 mm disc protrusion posteriorly displacing and impinging the transiting right S1 nerve root in the subarticular recess. There is disc and osteophyte extending to the neural foramina causing mild bilateral stenosis IMPRESSION: Advanced disc degeneration at L5-S1 with annular disc bulge and superimposed 8.6 mm right disc protrusion posteriorly displacing and impinging the transiting right S1 nerve root in the subarticular recess. Note: Compared to prior MRI of the lumbar spine from April 03, 2025, there is been interval decrease in size of the right disc herniation at L5-S1 Electronically signed by: Claudine Lamar MD 05/12/25 01:25 AM PG Care Time/CCT Total # of Minutes Spent Total Time Spent with Patient: Total time spent is greater than 50% in coordination of care (as documented) at patient's floor/unit and/or counseling patient: Supervising Physician Co-Signing Physician Notes Examined the patient personally and agree with the above documentation. We discussed treatment options, given the severity of his pain and severe disc degeneration at L5-S1 patient would like to proceed with transforaminal lumbar interbody fusion at L5-S1 for his recurrent disc herniation. We discussed surgical intervention at length, and the patient was informed that risks include but are not limited to: bleeding and possible need for blood transfusion, infection, blood clots to extremities or lungs, no relief of symptoms, dural te ar, nerve injury, paralysis, weakness, pain, instrumentation failure, prolonged recovery, need for physical therapy or rehabilitation services, loss of bowel/bladder control, recurrent stenosis or disc herniation, need for more surgery, and in very rare instances even . We also discussed that there is risk of pseudarthrosis formation, failure of the fusion to occur which may increase chances of instrumentation failure or need for further surgery. We also discussed that fusing the spine puts the patient at risk for adjacent segment breakdown and possible need for future surgery, the risk is approximately 3-5% per year. The patient voiced understanding of the risks and benefits of surgery and elected to proceed. Will plan to proceed with surgery tomorrow morning, hold anticoagulation, hold NSAIDs and n.p.o. after midnight. C[place] [address] IN/OBS CONSULT LVL 4,60M (57 - DECISION FOR SURGERY) Patient Type Established Medical Decision Making Moderate Complexity Diagnoses Recurrent herniation of lumbar disc M51.26 Lumbar radiculopathy M54.16 Paresthesia of right foot R20.2 Right foot pain M79.671 S/P lumbar discectomy Z98.890
--- NOTE | 2025-05-12 11:06 | Billing Data ---
Date of Service May 12, 2025 Coding Level of Care Code 53102 INT INP/OBS CARE
[2025-05-12 13:46] LABS: Partial Thromboplastin Time 27 Seconds (21-31); Prothrombin Time 11.1 Seconds (9.0-12.0)
[2025-05-12] MEDS: ACETAMINOPHEN 500 MG TAB PO SCH (16:20)
[2025-05-12] MEDS: LACTATED RINGER'S 1,000 ML IV SCH (20:57)
[2025-05-12] MEDS: BACLOFEN 10 MG TAB PO PRN (20:59)
[2025-05-13] MEDS ORDERED: VANCOMYCIN CONSULT ACTIVE PRN (06:12)
[2025-05-13 06:39] LABS: Basophils # (auto) 0.03 K/uL (0.00-0.20); Basophils % (auto) 0.2 %; Eosinophils # (auto) 0.05 K/uL (0.00-0.50); Eosinophils % (auto) 0.3 %; Hematocrit (blood only) 39.3 % (42.0-52.0); Hemoglobin 13.9 g/dl (14.0-18.0); Immature Granulocytes # (auto) 0.05 K/uL (0.01-0.20); Immature Granulocytes % (auto) 0.3 %; Lymphocytes # (auto) 3.17 K/uL (1.20-3.40); Lymphocytes % (auto) 21.7 %; Mean Corpuscular Hemoglobin 30.6 pg (25.0-34.0); Mean Corpuscular Hgb Conc 35.4 g/dL (32.0-36.0); Mean Corpuscular Volume 86.6 fL (80.0-100.0); Mean Platelet Volume 9.7 fL (9.4-12.4); Monocytes # (auto) 1.28 K/uL (0.11-0.59); Monocytes % (auto) 8.7 %; Neutrophils # (auto) 10.05 K/uL (1.40-6.50); Neutrophils % (auto) 68.8 %; Platelet Count 229 K/uL (130-400); RDW Coefficient of Variation 11.6 % (11.5-14.5); RDW Standard Deviation 36.8 fL (36.4-46.3); Red Blood Count 4.54 M/uL (4.70-6.10); White Blood Count 14.63 K/ul (4.8-10.8)
[2025-05-13 06:58] LABS: Prothrombin Time 11.1 Seconds (9.0-12.0)
[2025-05-13 07:10] LABS: BUN Creatinine Ratio 17.9 (10-20); Bilirubin,Total 1.6 mg/dl (0.2-1.0); Calcium 8.9 mg/dl (8.6-10.3); Creatinine Clr Calc Pharmacy 156.8 ml/min; Total Protein 6.1 gm/dl (6.0-8.3)
[2025-05-13] MEDS: VANCOMYCIN HCL 1,500 MG in DEXTROSE 5% 500 ML IV SCH (08:01)
--- NOTE | 2025-05-13 08:37 | Anesthesiology Consultation ---
Date of Service May 13, 2025 Assessment & Plan Chart Review Chart Review: Acceptable Risk for Surgery and Patient NOT seen in Pre Admission Testing Consults Requested none ASA ASA2 Proposed Anesthesia Anesthesia Type: General Risk / Benefits Reviewed With: PT / POA / Parent / Guardian, Accepts Plan and Informed Consent Obtained History Surgery Operation Date: 05/13/25 08:50 Proposed Procedures p L5-S1 Transforaminal Lumbar Interbody Fusion, Spinal Cord Monitoring - Mundo Wolf MD Height/Weight Height: 6 ft 1 in Weight: 101.7 kg Allergies Allergy/AdvReac Type Severity Reaction Status Date / Time promethazine Allergy Intermediate "FREAKED Verified 04/03/25 10:56 OUT" Medications Home Medications Medication Instructions Recorded Confirmed Last Taken baclofen 10 mg tablet 10 mg PO TID PRN muscle spasm #60 04/04/25 05/12/25 Unknown tabs gabapentin 600 mg tablet 600 mg PO TID #90 tabs 05/01/25 05/12/25 05/11/25 Active Medications Generic Name Dose Route Start Last Admin Trade Name Freq PRN Reason Stop Dose Admin Acetaminophen 1,000 mg 05/12/25 15:45 05/12/25 22:50 Acetaminophen 500 Mg Tab PO 06/11/25 15:44 1,000 mg Q8H SANDEE Administration Baclofen 10 mg 05/12/25 05:26 05/12/25 20:59 Baclofen 10 Mg Tab PO 06/11/25 05:25 10 mg TID PRN Administration muscle spasm Gabapentin 600 mg 05/12/25 09:00 05/12/25 20:57 Gabapentin 600 Mg Tab PO 06/11/25 08:59 600 mg TID SANDEE Administration Hydromorphone HCl 0.5 mg 05/12/25 15:33 05/13/25 07:23 Hydromorphone Inj 0.5 Mg/0.5 Ml Syr IV 05/26/25 15:32 0.5 mg Q2H PRN Administration Mod/Severe Pain (6-10) on NRS Lactated Ringer's 1,000 mls @ 100 mls/hr 05/12/25 22:00 05/13/25 07:23 Lr IV 05/15/25 21:59 100 mls/hr .Q10H SANDEE Administration Vancomycin HCl 1,500 mg/ 530 mls @ 200 mls/hr 05/13/25 07:00 05/13/25 08:01 Dextrose IV 05/13/25 09:38 200 mls/hr PREOP SANDEE Administration Pantoprazole Sodium 40 mg 05/12/25 09:00 05/12/25 09:47 Pantoprazole 40 Mg Tab PO 06/11/25 08:59 Not Given QAM SANDEE NPO Date Last Intake of Fluids: 05/12/25 Time Last Intake of Fluids: 23:00 Date Last Intake of Solids: 05/12/25 Time Last Intake of Solids: 21:30 Past Medical History Medical History Chewing tobacco nicotine dependence Right-sided low back pain with sciatica Obesity (BMI 30.0-34.9) Exercise / Class Metabolic Activity II 4-5 Yardwork/Stairs/Walk up hill Past Family History Family History Grandmother (Maternal) Diabetes Brother Diabetes Denies family history of Sudden Ovarian cancer Prostate cancer Heart disease Myocardial infarction Breast cancer Lung cancer Cancer Past Surgical History Surgical History No pertinent past surgical history Past Anesthesia History No Hx of Anesthesia Complications and No Family Hx of Anesthesia Complications History of PONV No Hx of PONV and No Hx of Motion Sickness Social History Smoking Status: Never smoker tobacco type: smokeless tobacco Do You Dip or Chew Tobacco: Yes Hx Alcohol Use: No Alcohol type: beer Hx Substance Use: No Physical Exam Vital Signs Last Vital Signs Temp 36.5 C 05/13/25 08:25 Pulse 63 05/13/25 08:25 Resp 16 05/13/25 08:25 BP 125/81 05/13/25 08:25 Pulse Ox 98 05/13/25 08:25 O2 Del Method Room Air 05/13/25 08:25 Constitutional + obese; no acute distress ENMT Mouth: no dentition abnormality Thyromental Distance: > or= 3.5 Finger Breadths Mallampati Class: II Neck normal visual inspection, trachea midline and + facial hair; neck extension not limited Respiratory normal respiratory effort Auscultation: lungs clear to auscultation bilaterally Cardiovascular Rate/Rhythm: regular rate and regular rhythm Heart Sounds: no murmur Vessels: no carotid bruit Musculoskeletal Spine: normal cervical ROM and no pain with cervical ROM Extremities: extremities normal to inspection; full ROM of extremities Neurologic moves all extremities Motor/Sensory: + sensory deficit (right foot radiculopathy/pain) Psychiatric Orientation: alert and oriented x 3 Testing Laboratory Results 05/13/25 06:17 05/13/25 06:17 PT 11.1 Seconds (9.0-12.0) 05/13/25 06:17 INR 1.0 (0.9-1.1) 05/13/25 06:17 APTT 27 Seconds (21-31) 05/12/25 12:59 Blood Type A Positive 05/12/25 18:40 Antibody Screen NEGATIVE 05/12/25 18:40
[2025-05-13] MEDS ORDERED: FLUMAZENIL 0.1 MG/1 ML 10 ML VIAL IV PRN (08:38)
[2025-05-13] MEDS ORDERED: NALOXONE HCL 0.4 MG/1 ML VIAL/CARP IV PRN ×2 (08:38→16:45)
[2025-05-13] MEDS ORDERED: ONDANSETRON INJ 2 MG/ML 2 ML VIAL IV PRN (08:38)
[2025-05-13] MEDS ORDERED: ePHEDrine sulfate 50 MG/ML AMP IV PRN (08:38)
[2025-05-13] MEDS ORDERED: ATROPINE SULFATE 0.1 MG/ML 10ML SYR IV PRN (08:38)
[2025-05-13] MEDS ORDERED: fentaNYL citrate PF 100 MCG/2 ML VIAL IV PRN (08:38)
[2025-05-13] MEDS ORDERED: HYDROmorphone INJ 1 MG/ML SYRINGE IV PRN (08:38)
--- NOTE | 2025-05-13 08:51 | History & Physical Bridge Note ---
Date of Service May 13, 2025 History & Physical Bridge Note I have examined the patient, reviewed the History & Physical and in the interval since the performance of the History & Physical I have noted the following changes of clinical significance: no changes noted Plan for TLIF L5-S1 risks discussed
[2025-05-13] MEDS: ceFAZolin 2000MG 2,000 MG/15 ML SYR IV SCH ×2 (10:00→20:02)
[2025-05-13] MEDS ORDERED: PHENYLEPHRINE 100MCG/ML 5ML SYR ONE ×2 (11:30→11:55)
[2025-05-13] MEDS ORDERED: PROPOFOL IV EMULSION 10 MG/ML 100 ML VIAL IV ONE ×3 (11:55→12:08)
[2025-05-13] MEDS ORDERED: PROPOFOL IV EMULSION 10 MG/ML 20 ML VIAL IV ONE ×2 (11:58→12:47)
[2025-05-13] MEDS ORDERED: ROCURONIUM BROMIDE 10 MG/ML 5 ML VIAL IV ONE (11:58)
[2025-05-13] MEDS ORDERED: LIDOCAINE 2% 2 ML VIAL/AMP(20MG/ML) INFIL ONE (11:58)
[2025-05-13] MEDS ORDERED: PHENYLEPHRINE HCL 10 MG/ML VIAL ONE (11:58)
[2025-05-13] MEDS ORDERED: SUCCINYLCHOLINE CHLORIDE 20 MG/ML 10 ML VIAL IV ONE (11:58)
[2025-05-13] MEDS ORDERED: DEXAMETHASONE SOD INJ 4 MG/ML VIAL ONE ×2 (12:06)
[2025-05-13] MEDS ORDERED: REMIFENTANIL HCL 1 MG VIAL IV ONE (12:07)
[2025-05-13] MEDS ORDERED: HYDROmorphone INJ 2 MG/ML SYR/VIAL ONE ×2 (12:57→13:13)
[2025-05-13] MEDS: VANCOMYCIN HCL 1000MG/20ML VIAL ONE (13:03)
[2025-05-13] MEDS ORDERED: SUGAMMADEX SODIUM 200 MG/2 ML VIAL IV ONE (13:03)
[2025-05-13] MEDS: BUPIVACAINE 0.5 % 5 MG/1 ML MPF 30ML VIAL ONE (13:03)
[2025-05-13] MEDS: FLOSEAL HEMOSTATIC MATRIX 10ML TOP ONE (13:04)
--- NOTE | 2025-05-13 13:18 | Post Operative Brief Note ---
PG Immediate Post Op with CF Date of Surgery May 13, 2025 Pre & Post Diagnosis Operation Date: 05/13/25 08:50 Pre-Op Diagnosis: Recurrent herniation of lumbar disc, Lumbar radiculopathy, Paresthesia of right foot, Right foot pain, Status Postop lumbar discectomy Post-Op Diagnosis: Recurrent herniation of lumbar disc, Lumbar radiculopathy, Paresthesia of right foot, Right foot pain, Status Postop lumbar discectomy I identified the patient and participated in the time-out.: Yes Procedure Operation Date: 05/13/25 08:50 Actual Procedures p L5-S1 Transforaminal Lumbar Interbody Fusion, Spinal Cord Monitoring(Not Applicable) - Mundo Wolf MD Surgeon Mundo Wolf MD Court Registry Officer Mike Coello PA-C Estimated Blood Loss 200 Findings Consistent with Post-Op Diagnosis Drains Elfego Drain and Ibarra Catheter Anesthesia Type General Complications none Disposition Disposition: Recovery Room
--- NOTE | 2025-05-13 13:30 | Fluoroscopy Report ---
FL lumbar spine 2-3V CLINICAL HISTORY: L5-S1 DECOMPRESSION AND FUSION AND INTERBODY COMPARISON STUDY: None FLUOROSCOPY TIME: 23 seconds FLUOROSCOPY IMAGES: 4 EXPOSURE DOSE: 15 mGy FINDINGS: Fluoroscopy was provided for L5-S1 instrumented fusion. IMPRESSION: Intraoperative fluoroscopy. ACT 112: Negative or not required by law. Electronically signed by: Maulik Marie M.D. 05/13/2025 1:29 PM
--- NOTE | 2025-05-13 13:31 | Hospitalist Progress Note ---
Date of Service May 13, 2025 Assessment & Plan (1) Lumbar radiculopathy: (2) Right foot pain: (3) Paresthesia of right foot: (4) Lumbosacral disc herniation: Plan This is a 35-year-old male who presents on 05/11 for lumbar radiculopathy and right foot paresthesias/pain. #Lumbar radiculopathy/right-sided sciatica - MRI-Lumbar Spine (05/11/25) Advanced disc degeneration at L5-S1 with annular disc bulge and superimposed 8.6 mm right disc protrusion posteriorly displacing and impinging the transiting right S1 nerve root in the subarticular recess. Note: Compared to prior MRI of the lumbar spine from April 03, 2025, there is been interval decrease in size of the right disc herniation at L5-S1 from 1.3 cm to 0.85 cm Pain management as follows: - Continue gabapentin 600 mg TID - Continue baclofen 10 mg p.o. TID - Dexamethasone 4 mg IV TID--d/c'd postop - Dilaudid 0.5 mg IV q2h PRN--changed to q4h postoperatively on 05/13 d/t amount of Dilaudid he received at the end of his case and level of somnolence at time of assessment - Scheduled acetaminophen 1000 mg p.o. q8h - Consider addition of oxycodone tiered post operatively with Dilaudid only available for breakthrough on 05/14 -Patient seen late in the day and still in PACU on 05/13 - Kpad - Pantoprazole 40 mg p.o. daily for stress ulcer prevention - Pain management consult appreciate - Orthospine consult appreciated s/p L5-S1 transforaminal lumbar interbody fusion with Dr. Wolf on 05/13 #Hyperbilirubinemia - Chronic, incidental, possibly due to physiological stress - Trend CMP Code status: Full code Disposition: Med-Surg FENGI: Regular diet VTE Prophylaxis: SCDs Admission and Anticipated Discharge Date Admission Date: May 12, 2025 Supervising Physician Co-Signing Physician Notes The patient was not seen by me. The chart was reviewed. Case discussed with REGINE Bach. Agree with assessment and plan José Hsieh was seen this afternoon in recovery room as he is s/p L5-S1 transforaminal lumbar interbody fusion today. He returned from OR around 1pm. Per INSURANCE CLAIMS ADJUSTER, pt received 4mg IV Dilaudid in the last 30 minutes of the case all at once. Arrived in PACU obtunded. He is currently on 4L of supplemental O2 via oxymask. He is beginning to wake up and limitedly converse. Review of Systems 2 Review of Systems: Unable to obtain ROS d/t somnolence Physical Exam 2 Physical Exam: GENERAL: 35 yo well-nourished WM. Somnolent. No distress. LUNGS: Clear to auscultation bilaterally.No W/R/R. CARDIOVASCULAR: Regular rate and rhythm. No M/G/R. No JVD. ABDOMEN: Soft and non-distended. No palpable masses. BS normoactive x 4 quad. EXTREMITIES: No edema. Non-tender. Peripheral pulses +2/4. SKIN: Warm, dry, intact. No rashes or lesions. Results & Data Results & Data Vital Signs (Past 12 Hours) Vital Signs Temp Pulse Resp BP Pulse Ox O2 Del Method 05/13/25 10:48 Room Air 05/13/25 08:25 36.5 C 63 16 125/81 98 Room Air 05/13/25 07:43 36.3 C L 65 18 132/83 97 Room Air Laboratory Results 05/13/25 06:17 05/13/25 06:17 PG Care Time/CCT Total # of Minutes Spent Total Time Spent with Patient: Total time spent is greater than 50% in coordination of care (as documented) at patient's floor/unit and/or counseling patient: 36 minutes Coding Level of Care Code 26057 SUB INP/OBS CARE 2/35MIN Diagnoses Lumbar radiculopathy M54.16 Right foot pain M79.671 Paresthesia of right foot R20.2 Lumbosacral disc herniation M51.27
--- NOTE | 2025-05-13 13:55 | Operative Report ---
PG Post Operative Report Pre & Post Diagnosis Operation Date: 05/13/25 08:50 Pre-Op Diagnosis: Recurrent herniation of lumbar disc, Lumbar radiculopathy, Paresthesia of right foot, Right foot pain, Status Postop lumbar discectomy Post-Op Diagnosis: Recurrent herniation of lumbar disc, Lumbar radiculopathy, Paresthesia of right foot, Right foot pain, Status Postop lumbar discectomy I identified the patient and participated in the time-out.: Yes Procedure Operation Date: 05/13/25 08:50 Actual Procedures 1. TRANSFORAMINAL LUMBAR INTERBODY FUSION, POSTEROLATERAL FUSION L5-S1 (95762) 2. PLACEMENT OF INTERBODY DEVICE FOR FUSION L5-S1 (63380) 3. POSTERIOR NON-SEGMENTAL SPINAL INSTRUMENTATION L5-S1 (92501) 4. COMPLETE LAMINECTOMY AT SITE OF INTERBODY FUSION L5 (93150) 5. USE OF CT-GUIDED STEREOTACTIC NAVIGATION FOR SPINAL INSTRUMENTATION (28401) 6. USE OF LOCAL AUTOGRAFT/ALLOGRAFT FOR SPINAL FUSION (44951, 76383) INSTRUMENTATION: Blackwave Modulex screws, Catalyft Surgeon Mundo Wolf MD Loom Technician Mike Coello PA-C Estimated Blood Loss 200 Findings Consistent with Post-Op Diagnosis Recurrent disc herniation Right L5-S1 Specimens None Drains Elfego Anesthesia Type General Complications none Disposition Disposition: Recovery Room Description of Procedure Procedure: I met the patient in the preoperative holding area, we again discussed the procedure to be performed today and patient agreed to proceed. Patient was brought to the operating room and placed under general anesthesia. Neuro monitoring leads attached, SCDs for DVT prophylaxis, received IV antibiotic for infection prophylaxis. Positioning: Following intubation, the patient was placed prone onto the Daniel table. Maximum obtainable lumbar lordosis was achieved. Care was taken to position padding under potential pressure points. Prepping and Draping: Patient was prepped and draped in the usual sterile fashion. Verbal time-out was performed and identified the patient by name and date of , all were in agreement on the correct procedure and we elected to proceed. Initial intraoperative CT scan: Following the time-out, a hip pain with placed for navigation. The Blackwave O arm was then brought in an intraoperative CT scan was performed. Images were uploaded to the in room Balzo navigation unit for stereotactic guided instrumentation of the posterior lumbar spine. Incision and Exposure: An incision was made between the spinous processes of L5 and S1. Electrocautery was utilized to control all bleeding. I went through the subcutaneous layer exposing the lumbodorsal fascia. The subcutaneous layer was stripped off to the side to gain exposure to the fascial layers. I carried out subperiosteal dissection down along the spinous processes and out the lamina to expose the L5 and superior S1 lamina. I then dissected out to expose the sacral ala and L5 transverse processes bilaterally. The facet capsules were completely removed within the fusion range. Insertion of Pedicle Screws Bilaterally: Navigated bur was used to identify the correct start point for pedicle screws bilaterally. I then used a navigated bur followed by awl to create a tunnel at each pedicle bilaterally. The navigation unit was then used to measure the appropriate screw size. Pedicle screws of the appropriate size were then placed bilaterally from L5 to S1 using navigated screwdriver. EMG was performed on all screw with appropriate threshold without concern. Motor evoked potentials were run without change. Second Intraoperative CT Scan for Stereotactic Navigation: After placement of the pedicle screw instrumentation the O arm was brought back in. A 2nd intraoperative CT scan was performed. The images were uploaded to the in-room viewer and I verified personally that all pedicle screw instrumentation was in good position without evidence of breach. Transforaminal Lumbar Interbody Fusions, Decompressions, Posterior Fusion: Next, a complete laminectomy was performed at the L5 level in preparation. The spinous process was removed with Leksell rongeur and morselized for bone graft. The lamina was thinned with a high-speed bur and the remainder of the lamina was removed with Kerrison punch with a [place] used to protect the dura. Ligamentum flavum was completely removed at this level, scar tissue was elevated off the prior laminotomy site, recurrent disc herniation identified and removed. This provided excellent decompression of the bilateral traversing S1 nerve roots over the disc space at L5-S1. This bilateral decompression was greater than required for insertion of an interbody cage. A complete facetectomy was performed at the symptomatic side to allow placement of the interbody cage. After adequate nerve root decompression, I turned my attention to performing a transforaminal lumbar interbody fusion. I performed a complete diskectomy at L5-S1. Distraction was done with pedicle screw based distractors. The cartilaginous endplates were removed with a series of curettes and rongeurs. Sclerotic bleeding bone was seen at both endplates following complete evacuation and cleaning of the disc space. Local autograft bone harvested from the laminectomy was packed into the disc space along with allograft bone. A TLIF cage was selected after using a trial to determine the appropriate size. The cage was then impacted to appropriate depth under fluoroscopy and expanded. I then decorticated the remaining posterior lateral facet joints at L5-S1. The posterolateral gutters were packed with allograft material as well as the remai nder of the local bone harvested from the laminectomies to encourage posterolateral fusion. Preformed lumbar rods were then placed and set screws applied and final tightened. Intraoperative fluoroscopic images were obtained, confirming appropriate screw and cage position, and overall lordotic alignment of the motion segments. I attest to the content of the Intraoperative Record and any orders documented therein. Any exceptions are noted below.
[2025-05-13] MEDS ORDERED: ALUMINUM/MAGNESIUM SUSP 30 ML UDC PO PRN (16:45)
[2025-05-13] MEDS ORDERED: DO NOT ADMINISTER PNEUMOCOCCAL VACCINE PRN (16:45)
[2025-05-13] MEDS ORDERED: DO NOT ADMINISTER FLU VACCINE PRN (16:45)
[2025-05-13] MEDS ORDERED: diphenhydrAMINE Capsule 25 MG CAP PO PRN (16:45)
[2025-05-13] MEDS ORDERED: MAGNESIUM HYDROXIDE SUSP 30 ML UDC PO PRN (16:45)
[2025-05-13] MEDS ORDERED: bisacodyL 10 MG SUPP PR PRN (16:45)
[2025-05-13] MEDS ORDERED: SOD PHOSPHATE/SOD BIPHOSPHATE ENEMA 132 ML BTL PR PRN (16:45)
[2025-05-13] MEDS ORDERED: hydrOXYzine HCl 25 MG TAB PO PRN (16:45)
[2025-05-13] MEDS: KETOROLAC 30 MG/ML VIAL IV SCH (17:01)
[2025-05-13] MEDS: DOCUSATE SODIUM/SENNA 50/8.6MG TAB PO SCH (20:01)
[2025-05-13] MEDS: dexAMETHasone 10 MG in SYRINGE 0 ML IV SCH (20:45)
[2025-05-13] MEDS: HYDROmorphone INJ 0.5 MG/0.5 ML SYR IV PRN (23:01)
[2025-05-14] MEDS: oxyCODONE HCL IR 5 MG TAB (IMMEDIATE RELEASE) PO PRN (04:09)
--- NOTE | 2025-05-14 07:26 | Anesthesiology Progress Note ---
Date of Service May 14, 2025 Anesthesia Post Procedure Vital Signs Vital Signs: Temp Pulse Pulse Pulse Resp BP Pulse Ox 05/14/25 03:00 36.8 C 76 18 128/84 95 05/13/25 20:11 36.5 C 84 18 132/70 95 05/13/25 19:00 36.7 C 89 18 132/69 95 05/13/25 17:54 36.6 C 72 18 142/96 H 97 05/13/25 17:21 36.8 C 63 18 120/73 97 05/13/25 16:45 36.8 C 77 16 126/78 98 05/13/25 16:10 66 14 122/81 96 05/13/25 15:55 66 16 119/81 97 05/13/25 15:40 61 20 124/80 98 05/13/25 15:30 71 13 120/76 95 05/13/25 15:20 36.7 C 79 12 120/81 98 05/13/25 15:10 71 10 L 132/83 98 05/13/25 15:00 72 9 L 114/91 100 05/13/25 14:50 86 10 L 138/82 100 05/13/25 14:40 67 11 L 142/80 H 99 05/13/25 14:30 69 10 L 144/81 H 100 05/13/25 14:20 80 12 138/80 100 05/13/25 14:10 69 17 135/89 100 05/13/25 14:00 70 7 L 132/77 100 05/13/25 13:50 70 9 L 116/74 99 05/13/25 13:43 36.8 C 74 13 122/71 90 05/13/25 10:48 05/13/25 08:25 36.5 C 63 16 125/81 98 05/13/25 07:43 36.3 C L 65 18 132/83 97 O2 Del Method O2 Flow Rate 05/14/25 03:00 Room Air 05/13/25 20:11 Room Air 05/13/25 19:00 Room Air 05/13/25 17:54 Nasal Cannula 2 05/13/25 17:21 Nasal Cannula 2 05/13/25 16:45 Nasal Cannula 3 05/13/25 16:10 Nasal Cannula 3 05/13/25 15:55 Nasal Cannula 3 05/13/25 15:40 Nasal Cannula 3 05/13/25 15:30 Nasal Cannula 3 05/13/25 15:20 Nasal Cannula 3 05/13/25 15:10 Oxymask 10 05/13/25 15:00 Oxymask 12 05/13/25 14:50 Oxymask 12 05/13/25 14:40 Oxymask 9 05/13/25 14:30 Oxymask 15 05/13/25 14:20 Oxymask 15 05/13/25 14:10 Oxymask 15 05/13/25 14:00 Oxymask 15 05/13/25 13:50 Oxymask 15 05/13/25 13:43 Oxymask 15 05/13/25 10:48 Room Air 05/13/25 08:25 Room Air 05/13/25 07:43 Room Air Pain Intensity Right Foot: Pain Intensity: 9 Transfer of Care Handoff Completed per policy Notes Mental Status: alert / awake / arousable Patient Amnestic to Procedure: Yes Nausea / Vomiting: adequately controlled Pain: adequately controlled Airway Patency, RR, SpO2: stable & adequate BP & HR: stable & adequate Hydration State: stable & adequate Anesthetic Complications: no major complications apparent
[2025-05-14 07:56] LABS: Hemoglobin 13.6 g/dl (14.0-18.0); Mean Corpuscular Hemoglobin 30.1 pg (25.0-34.0); Mean Corpuscular Hgb Conc 34.9 g/dL (32.0-36.0); Mean Corpuscular Volume 86.3 fL (80.0-100.0); Mean Platelet Volume 9.9 fL (9.4-12.4); Platelet Count 232 K/uL (130-400); RDW Coefficient of Variation 11.5 % (11.5-14.5); RDW Standard Deviation 36.3 fL (36.4-46.3); Red Blood Count 4.52 M/uL (4.70-6.10); White Blood Count 18.23 K/ul (4.8-10.8)
--- NOTE | 2025-05-14 08:13 | Orthopedic Progress Note ---
Date of Service May 14, 2025 Assessment & Plan (1) S/P lumbar fusion: POD 1 From a lumbar decompression and fusion - mobilization with PT/OT. - Pain control as per protocol/orders - He would like to stay until tomorrow due to pain and function. - Keep drain in until removal order from Dr. Wolf -Follow-up in 2 weeks as an outpatient with Dr. Wolf when discharged Subjective Operation Date: 05/13/25 08:50 Actual Procedures p L5-S1 Transforaminal Lumbar Interbody Fusion, Spinal Cord Monitoring(Not Applicable) - Mundo Wolf MD Patient is a 35-year-old male who is postop day 1 from an L5-S1 decompression and fusion. He is resting in his hospital bed at today's visit. Does state that the right foot pain has significantly improved from prior surgery but is still noticeable and painful to him. It has subsided much from surgery. His drain is intact. His did have some questions about his PACU care/waking up from anesthesia yesterday and her concern with a dose of Dilaudid. Drain output at 4 AM was 40 cc. Other than that, no other questions or concerns today. Review of Systems All systems reviewed & are unremarkable except as noted in HPI & below. Physical Exam General: Alert and oriented. No acute distress. Patient has good motion of the bilateral lower extremities. He is able to move his right hip, knee and ankle without discomfort. When he does move his toes, he does get some discomfort but he is able to do so. He is neuro vastly intact in the bilateral lower extremities. In regards to his lumbar spine incision: There is some saturation of the dressing. His drain is intact and functioning. Drain reading was 40 cc at 4 AM. Results & Data Results & Data Laboratory Results . Diagnostic Findings . PG Care Time/CCT Total # of Minutes Spent Total Time Spent with Patient: Total time spent is greater than 50% in coordination of care (as documented) at patient's floor/unit and/or counseling patient: Supervising Physician Co-Signing Physician Notes Agree with above, continue with gabapentin, decadron. Mobilize with PT, home in next few days. Coding Level of Care Code 74338 Post Operative Follow-Up Diagnoses S/P lumbar fusion Z98.1
[2025-05-14 08:19] LABS: Basophils # (auto) 0.02 K/uL (0.00-0.20); Basophils % (auto) 0.1 %; Immature Granulocytes % (auto) 0.5 %; Lymphocytes # (auto) 0.68 K/uL (1.20-3.40); Lymphocytes % (auto) 3.7 %; Monocytes # (auto) 0.48 K/uL (0.11-0.59); Monocytes % (auto) 2.6 %; Neutrophils # (auto) 16.95 K/uL (1.40-6.50); Neutrophils % (auto) 93.1 %
[2025-05-14 08:21] LABS: BUN Creatinine Ratio 17.9 (10-20); Bilirubin,Total 1.1 mg/dl (0.2-1.0); Calcium 8.8 mg/dl (8.6-10.3); Creatinine Clr Calc Pharmacy 196.6 ml/min; Globulin 2.1 gm/dl (2.5-4.0); Potassium 4.1 mmol/L (3.5-5.1); Total Protein 6.2 gm/dl (6.0-8.3)
--- NOTE | 2025-05-14 09:48 | XRay Report ---
XR lumbar spine 2-3V CLINICAL HISTORY: post-op spine surgery COMPARISON STUDY: 04/03/2025 FINDINGS: Posterior metallic fusion with interbody device at L5-S1 shows no hardware complication. Po stoperative drain is present. Skin davion are present posteriorly. There is stable mild height loss at the L1 vertebral body. No new fracture or subluxation. IMPRESSION: No acute findings. ACT 112: Negative or not required by law. Electronically signed by: Maulik Marie M.D. 05/14/2025 9:47 AM
--- NOTE | 2025-05-14 21:40 | Hospitalist Progress Note ---
Date of Service May 14, 2025 Assessment & Plan (1) Lumbar radiculopathy: (2) Right foot pain: (3) Paresthesia of right foot: (4) Lumbosacral disc herniation: Plan This is a 35-year-old male who presents on 05/11 for lumbar radiculopathy and right foot paresthesias/pain. #Lumbar radiculopathy/right-sided sciatica - MRI-Lumbar Spine (05/11/25) Advanced disc degeneration at L5-S1 with annular disc bulge and superimposed 8.6 mm right disc protrusion posteriorly displacing and impinging the transiting right S1 nerve root in the subarticular recess. Note: Compared to prior MRI of the lumbar spine from April 03, 2025, there is been interval decrease in size of the right disc herniation at L5-S1 from 1.3 cm to 0.85 cm Pain management as follows: - Continue gabapentin 600 mg TID - Continue baclofen 10 mg p.o. TID - Dexamethasone 4 mg IV TID--d/c'd postop - Dilaudid 0.5 mg IV q2h PRN--changed to q4h postoperatively on 05/13 d/t amount of Dilaudid he received at the end of his case and level of somnolence at time of assessment - Scheduled acetaminophen 1000 mg p.o. q8h - Patient not quite ready for discharge today. will continue to monitor with current management. - Kpad - Pantoprazole 40 mg p.o. daily for stress ulcer prevention - Pain management consult appreciate - Orthospine consult appreciated s/p L5-S1 transforaminal lumbar interbody fusion with Dr. Wolf on 05/13 #Hyperbilirubinemia - Chronic, incidental, possibly due to physiological stress - bilrruibin is showing improvement. Code status: Full code Disposition: Med-Surg FENGI: Regular diet VTE Prophylaxis: SCDs Chart review Admission and Anticipated Discharge Date Admission Date: May 12, 2025 Subjective Patient reports no feeling quite ready for discharge as of yet. Patient still with some pain. Review of Systems Review of Systems: All systems reviewed & are unremarkable except as noted in HPI & below Physical Exam Physical Exam: GENERAL: 35 yo well-nourished WM. No distress. EXTREMITIES: No edema. SKIN: Warm, dry, intact. No rashes or lesions. Results & Data Results & Data Vital Signs (Past 12 Hours) Vital Signs Temp Pulse Resp BP Pulse Ox O2 Del Method 05/14/25 19:23 36.6 C 93 H 18 150/83 H 96 Room Air 05/14/25 16:02 36.6 C 93 H 18 159/82 H 95 Room Air PG Care Time/CCT Total # of Minutes Spent Total Time Spent with Patient: Total time spent is greater than 50% in coordination of care (as documented) at patient's floor/unit and/or counseling patient: Coding Level of Care Code 35396 SUB INP/OBS CARE 3/50MIN Diagnoses Lumbar radiculopathy M54.16 Right foot pain M79.671 Paresthesia of right foot R20.2 Lumbosacral disc herniation M51.27
--- NOTE | 2025-05-15 13:48 | Orthopedic Progress Note ---
Date of Service May 15, 2025 Assessment & Plan (1) Recurrent herniation of lumbar disc: (2) S/P lumbar fusion: (3) Paresthesia of right foot: Plan 35-year-old male POD#2 s/p L5-S1 TLIF, L5 laminectomy, placement CT guided posterior spinal instrumentation, doing well overall. Pain is controlled. He has not been having to use the IV Dilaudid at all since yesterday. He is now using oral pain medications only. He is making progress with therapy. Operative site pain is improving, as well as is pain and paresthesia to the right foot. Plan: 1. DVT prophylaxis w/ regular ambulation/mobilization, SCDs. 2. Continue PT/OT. WBAT and AAT. 3. Drain to remain intact; plan to remove tomorrow, Wednesday 05/16. Approximately 20 cc blood was in drain canister from 6:30 AM to 10:45 AM. 4. Continue diet as tolerated. 5. Disposition - remain inpatient for further therapy and to monitor drain output. Plan to discharge home tomorrow with assistance of his . 6. F/u as 2 weeks postop w/ Dr. Wolf for first post-op visit. Subjective Patient is POD#2 s/p: 1. TRANSFORAMINAL LUMBAR INTERBODY FUSION, POSTEROLATERAL FUSION L5-S1 (71435) 2. PLACEMENT OF INTERBODY DEVICE FOR FUSION L5-S1 (83322) 3. POSTERIOR NON-SEGMENTAL SPINAL INSTRUMENTATION L5-S1 (28923) 4. COMPLETE LAMINECTOMY AT SITE OF INTERBODY FUSION L5 (00455) 5. USE OF CT-GUIDED STEREOTACTIC NAVIGATION FOR SPINAL INSTRUMENTATION (25258) 6. USE OF LOCAL AUTOGRAFT/ALLOGRAFT FOR SPINAL FUSION (45833, 80652) by Dr. Wolf on 05/13/2025. Patient says his pain is further improved over yesterday. He is continuing to have some pain and paresthesia in the right lateral and plantar foot, but this is also gradually improving since the surgery. He says that his pain level compared to preoperative is significantly less. He has been up with therapy on a couple of occasions now, and the patient's says that he is now walking without any assistance. Patient does feel that he may benefit most from staying until tomorrow. Review of Systems All systems reviewed & are unremarkable except as noted in HPI & below. Physical Exam GENERAL: Speech and cognition is intact. Mood and affect is appropriate. Does not appear in acute distress. Sitting upright in bed and appears relatively comfortable. HEAD: Normocephalic; atraumatic. CHEST: Regular chest respiration and excursion. NEURO: Awake, alert, and oriented x 3. BACK: Dressing intact to lumbar spine with overlying Tegaderm and no evidence of saturation. No evidence of erythema, drainage, or abnormal warmth. Drain intact (20 cc blood present in the drain canister). LOWER EXTREMITIES: Sensation intact to light touch of the bilateral L2-S1 dermatomes, however, diminished to L5/S1 on the right. Plantar/dorsiflexion intact bilaterally. NVI distally. R Hip flexion 5/5; knee extension 5/5; knee flexion 5/5; ankle dorsiflexion 5/5; ankle plantar flexion 5/5; EHL 5/5 Results & Data Results & Data Laboratory Results . Diagnostic Findings . PG Care Time/CCT Total # of Minutes Spent Total Time Spent with Patient: Total time spent is greater than 50% in coordination of care (as documented) at patient's floor/unit and/or counseling patient: [place]oding [place] [address] Post Operative Follow-Up Patient Type Established History Problem Focused Exam Problem Focused Medical Decision Making Straight Forward Diagnoses Recurrent herniation of lumbar disc M51.26 S/P lumbar fusion Z98.1 Paresthesia of right foot R20.2
--- NOTE | 2025-05-15 22:35 | Hospitalist Progress Note ---
Date of Service May 15, 2025 Assessment & Plan (1) Lumbar radiculopathy: (2) Right foot pain: (3) Paresthesia of right foot: (4) Lumbosacral disc herniation: Plan This is a 35-year-old male who presents on 05/11 for lumbar radiculopathy and right foot paresthesias/pain. #Lumbar radiculopathy/right-sided sciatica - MRI-Lumbar Spine (05/11/25) Advanced disc degeneration at L5-S1 with annular disc bulge and superimposed 8.6 mm right disc protrusion posteriorly displacing and impinging the transiting right S1 nerve root in the subarticular recess. Note: Compared to prior MRI of the lumbar spine from April 03, 2025, there is been interval decrease in size of the right disc herniation at L5-S1 from 1.3 cm to 0.85 cm Pain management as follows: - Continue gabapentin 600 mg TID - Continue baclofen 10 mg p.o. TID - Dexamethasone 4 mg IV TID--d/c'd postop - Dilaudid 0.5 mg IV q2h PRN--changed to q4h postoperatively on 05/13 d/t amount of Dilaudid he received at the end of his case and level of somnolence at time of assessment - Scheduled acetaminophen 1000 mg p.o. q8h - Patient not quite ready for discharge today. will continue to monitor with current management. -VIC draining, will keep for another day - Kpad - Pantoprazole 40 mg p.o. daily for stress ulcer prevention - Pain management consult appreciate - Orthospine consult appreciated s/p L5-S1 transforaminal lumbar interbody fusion with Dr. Wolf on 05/13 reviewed cbc, no signifcant anemia, no signs of infection #Hyperbilirubinemia - Chronic, incidental, possibly due to physiological stress - bilrruibin is showing improvement. Code status: Full code Disposition: Med-Surg FENGI: Regular diet VTE Prophylaxis: SCDs Chart review Admission and Anticipated Discharge Date Admission Date: May 12, 2025 Subjective 35 yo male reports his foot pain has improved. Physical Exam Physical Exam: GENERAL: 35 yo well-nourished WM. No distress. EXTREMITIES: No edema. SKIN: Warm, dry, intact. No rashes or lesions. Results & Data Results & Data Vital Signs (Past 12 Hours) Vital Signs Temp Pulse Resp BP Pulse Ox O2 Del Method 05/15/25 19:35 36.7 C 83 18 128/82 98 Room Air 05/15/25 15:24 36.4 C L 79 16 125/79 95 Room Air PG Care Time/CCT Total # of Minutes Spent Total Time Spent with Patient: Total time spent is greater than 50% in coordination of care (as documented) at patient's floor/unit and/or counseling patient: Coding Level of Care Code 81735 SUB INP/OBS CARE 3/50MIN Diagnoses Lumbar radiculopathy M54.16 Right foot pain M79.671 Paresthesia of right foot R20.2 Lumbosacral disc herniation M51.27
[2025-05-16 07:29] LABS: Basophils # (auto) 0.02 K/uL (0.00-0.20); Basophils % (auto) 0.1 %; Eosinophils # (auto) 0.02 K/uL (0.00-0.50); Eosinophils % (auto) 0.1 %; Hematocrit (blood only) 37.5 % (42.0-52.0); Immature Granulocytes # (auto) 0.18 K/uL (0.01-0.20); Immature Granulocytes % (auto) 1.2 %; Lymphocytes # (auto) 4.08 K/uL (1.20-3.40); Lymphocytes % (auto) 26.2 %; Mean Corpuscular Hemoglobin 30.4 pg (25.0-34.0); Mean Corpuscular Hgb Conc 34.7 g/dL (32.0-36.0); Mean Corpuscular Volume 87.8 fL (80.0-100.0); Mean Platelet Volume 9.7 fL (9.4-12.4); Monocytes # (auto) 1.56 K/uL (0.11-0.59); Neutrophils # (auto) 9.73 K/uL (1.40-6.50); Neutrophils % (auto) 62.4 %; Platelet Count 214 K/uL (130-400); RDW Coefficient of Variation 11.9 % (11.5-14.5); Red Blood Count 4.27 M/uL (4.70-6.10); White Blood Count 15.59 K/ul (4.8-10.8)
[2025-05-16 07:48] LABS: Alanine Aminotransferase 25 U/L (7-52); Albumin Globulin Ratio 1.8 (0.9-2); Alkaline Phosphatase 46 U/L (34-104); Anion Gap 6 (3-11); Aspartate Aminotransferase 17 U/L (13-39); BUN Creatinine Ratio 24.4 (10-20); Bilirubin,Total 0.7 mg/dl (0.2-1.0); Blood Urea Nitrogen 21 mg/dl (6-23); C Reactive Protein < 0.50 mg/dl (0-0.5); Calcium 8.6 mg/dl (8.6-10.3); Carbon Dioxide 28 mmol/L (21-32); Chloride 106 mmol/L (98-107); Creatinine Clr Calc Pharmacy 153.1 ml/min; Glucose 94 mg/dl (70-99(Fasting)); Potassium 3.8 mmol/L (3.5-5.1); Sodium 140 mmol/L (136-145); Total Protein 5.6 gm/dl (6.0-8.3)
[2025-05-16 09:16] VITALS: PULSE 89; RESP 16; TEMP 97.5; O2SAT 96
--- NOTE | 2025-05-16 12:55 | Orthopedic Progress Note ---
Date of Service May 16, 2025 Assessment & Plan (1) Recurrent herniation of lumbar disc: (2) S/P lumbar fusion: (3) Paresthesia of right foot: Plan 35-year-old male POD#3 s/p L5-S1 TLIF, L5 laminectomy, placement CT guided posterior spinal instrumentation, doing well overall. Pain is controlled. Continues to not need any IV pain medication, but is requiring oral oxycodone for pain control at the operative site. Continues to make daily progress with therapy. Operative site pain is further improved, as well as is pain and paresthesia to the right foot. He is regaining some sensation in his thigh. Plan: 1. DVT prophylaxis w/ regular ambulation/mobilization, SCDs. 2. Continue PT/OT. WBAT and AAT. Assistive device as needed, but not necessary. 3. Drain removed today, with no active drainage noted after drain removal. New dressing was placed. Continue dressing changes per instructions. 4. Continue diet as tolerated. 5. Disposition - discharge to home today. 6. F/u as scheduled approximately 2 weeks postop w/ Dr. Wolf for initial post-op visit. Subjective Patient is POD#3 s/p: 1. TRANSFORAMINAL LUMBAR INTERBODY FUSION, POSTEROLATERAL FUSION L5-S1 (37258) 2. PLACEMENT OF INTERBODY DEVICE FOR FUSION L5-S1 (13369) 3. POSTERIOR NON-SEGMENTAL SPINAL INSTRUMENTATION L5-S1 (22714) 4. COMPLETE LAMINECTOMY AT SITE OF INTERBODY FUSION L5 (01729) 5. USE OF CT-GUIDED STEREOTACTIC NAVIGATION FOR SPINAL INSTRUMENTATION (59192) 6. USE OF LOCAL AUTOGRAFT/ALLOGRAFT FOR SPINAL FUSION (77684, 53810) by Dr. Wolf on 05/13/2025. Patient continues to improve each day. He describes his pain as more of an odd sensation in the right lateral and plantar foot, but this is continuing to gradually improving since the surgery. He thinks he is starting to regain some sensation in other areas of the leg, pa rticularly the posterior thigh, as well. Patient continues to progress with therapy. He says that he will be ready to go home today. Review of Systems All systems reviewed & are unremarkable except as noted in HPI & below. Physical Exam GENERAL: Speech and cognition is intact. Mood and affect is appropriate. Does not appear in acute distress. Found sleeping in bed, but easily aroused. HEAD: Normocephalic; atraumatic. CHEST: Regular chest respiration and excursion. NEURO: Awake, alert, and oriented x 3. BACK: Dressing intact to lumbar spine with overlying Tegaderm and no evidence of saturation. No evidence of erythema, drainage, or abnormal warmth. Drain intact. LOWER EXTREMITIES: Sensation intact to light touch of the bilateral L2-S1 dermatomes, however, diminished to L5/S1 on the right. Plantar/dorsiflexion intact bilaterally. NVI distally. Results & Data Results & Data Laboratory Results . Diagnostic Findings . PG Care Time/CCT Total # of Minutes Spent Total Time Spent with Patient: Total time spent is greater than 50% in coordination of care (as documented) at patient's floor/unit and/or counseling patient: Coding [place] [address] Post Operative Follow-Up Patient Type Established History Problem Focused Exam Problem Focused Medical Decision Making Straight Forward Diagnoses Recurrent herniation of lumbar disc M51.26 S/P lumbar fusion Z98.1 Paresthesia of right foot R20.2
--- NOTE | 2025-05-16 13:24 | Discharge Summary ---
Date of Service May 16, 2025 Admission HPI (Per Admitting) Hospitalist H&P 05/12/2025: Patient is a 35 yo M w/ a PMHx of lumbar radiculopathy (s/p lumbar discectomy), w/ associated Sx such as r. foot paresthesia and pain, lumbosacral disc degeneration and disc herniation noted on previous imaging, and chewing tobacco- dependence, presenting today w/ poorly controlled back pain radiating down r. leg. Patient has been taking gabapentin, 600 mg, PO, TID; baclofen, 10 mg, PO, TID; and methylprednisolone, 4mg, PO, daily. He was also prescribed a week-long course of oxycodone-acetaminophen (5-325 mg), 6 tabs daily, for 7 days but states he only took one of those pills. Patient denies any back pain but does en dorse r. lateral and r. dorsal foot pain, paresthesias (burning, stabbing sensation); this pain starts around the [place] heel area. Patient also endorses some r. thigh posterior pain. His pain does seem to be somewhat position- dependent, worsening when sitting or with his spine in a flexed posture. He notes very little improvement of the pain after surgery and possibly some worsening of that pain over the last few weeks. Personal consultation 05/12/2025: Patient is a 35-year-old male well-known to the [facility] orthospine clinic for recent lumbar spine surgery consisting of L5-S1 discectomy performed on 04/04/2025. At his 2-week postoperative visit, he was noting significant improvement in pain in the right lower extremity comparative to the symptomatology he was experiencing prior to the surgery. He did report persistent numbness and tingling to the lateral aspect and plantar aspect of the right foot, but this was somewhat improved as well. He reported that he was no longer having any numbness in the calf region. The numbness he was continuing to have was also described as painful on the lateral aspect of his right foot. At that visit, it was discussed that it was felt his numbness/pain sensation would improve with some time. He was prescribed some Toradol and nerve glides with physical therapy to promote activity advancement. He also had his gabapentin increased to 600 mg TID. Despite this, the patient presented to the [facility] ED last night for worsening of the right foot pain. Today, he states that he really has no back pain at all. He is denying any issues with the operative site. He does get some intermittent pain/paresthesia down through the right buttocks and posterior right leg, but what bothers him the most is the right foot, stating that he cannot even touch the bottom or lateral part of the foot, as it incites severe pain. He has been tensing his abdominal muscles on and off due to the shooting/radiating pain he continues to experience. Patient did undergo an updated MRI last night, which is demonstrating some advanced disc degeneration and annular disc bulge at L5-S1, which also has a recurrent disc protrusion that is impinging upon the transiting right S1 nerve root in the subarticular recess. Supervising physician -- Dr. Wolf 05/08/2025: Examined the patient personally and agree with the above documentation. We discussed treatment options, given the severity of his pain and severe disc degeneration at L5-S1 patient would like to proceed with transforaminal lumbar interbody fusion at L5-S1 for his recurrent disc herniation. We discussed surgical intervention at length, and the patient was informed that risks include but are not limited to: bleeding and possible need for blood transfusion, infect ion, blood clots to extremities or lungs, no relief of symptoms, dural tear, nerve injury, paralysis, weakness, pain, instrumentation failure, prolonged recovery, need for physical therapy or rehabilitation services, loss of bowel/bladder control, recurrent stenosis or disc herniation, need for more surgery, and in very rare instances even . We also discussed that there is risk of pseudarthrosis formation, failure of the fusion to occur which may increase chances of instrumentation failure or need for further surgery. We also discussed that fusing the spine puts the patient at risk for adjacent segment breakdown and possible need for future surgery, the risk is approximately 3-5% per year. The patient voiced understanding of the risks and benefits of surgery and elected to proceed. Will plan to proceed with surgery tomorrow morning, hold anticoagulation, hold NSAIDs and n.p.o. after midnight. Admission Exam (Per Admitting) GENERAL: Speech and cognition is intact. Mood and affect is appropriate. Does not appear in acute distress. Lying in bed and protecting the right foot from touch. Occasionally tenses in pain. HEAD: Normocephalic; atraumatic. NECK: Trachea is midline. CHEST: Regular chest respiration and excursion. EXTREMITIES: Distal sensation and pulses intact bilaterally. BACK: Well-healed lumbar cicatrix, which is without evidence of erythema, drainage, or abnormal warmth. NEURO: Awake, alert, and oriented x 3. Sensation intact to light touch of the bilateral L2-S1 dermatomes however, hyperesthesia noted to right S1 dermatome. SKIN: No lesions, erythema, or rashes noted. LOWER EXTREMITIES: R Hip flexion 5/5; hip extension 4+/5; knee extension 5/5; knee flexion 4+/5; ankle dorsiflexion 5/5; ankle plantar flexion unable to perform due to guarding/pain; EHL 5/5 Principal Diagnosis Same as "Discharge Diagnosis" noted below under Discharge Instructions. Discharge Exam GENERAL: Speech and cognition is intact. Mood and affect is appropriate. Does not appear in acute distress. Found sleeping in bed, but easily aroused. HEAD: Normocephalic; atraumatic. CHEST: Regular chest respiration and excursion. NEURO: Awake, alert, and oriented x 3. BACK: Dressing intact to lumbar spine with overlying Tegaderm and no evidence of saturation. No evidence of erythema, drainage, or abnormal warmth. Drain intact. LOWER EXTREMITIES: Sensation intact to light touch of the bilateral L2-S1 dermatomes, however, diminished to L5/S1 on the right. Plantar/dorsiflexion intact bilaterally. NVI distally. Discharge Data Consultations 05/12/25 01:38 ED Decision to Admit Stat 05/12/25 03:50 Consult Pain Management Routine 05/12/25 04:17 Consult Orthopedic Spine Surgery Routine Procedures Performed Operation Date: 05/13/25 08:50 Actual Procedures p L5-S1 Transforaminal Lumbar Interbody Fusion, Spinal Cord Monitoring(Not Applicable) - Mundo Wolf MD Ordered Studies 05/11/25 22:38 MR lumbar spine wo con Stat 05/13/25 08:50 CT lumbar spine wo con Routine [place] lumbar spine 2-3V Routine Hospital Course (1) Recurrent herniation of lumbar disc: (2) S/P lumbar fusion: (3) Lumbar radiculopathy: (4) Paresthesia of right foot: (5) Right foot pain: Plan On May 13, 2025 Jori was already present at the [facility] for intractable right lower extremity radiculopathic pain. He was taken to the operating room that day and underwent L5-S1 TLIF, L5 laminectomy, and placement CT guided posterior spinal instrumentation without complications. Patient had general anesthesia for the procedure. Patient was then transferred back to the general orthopedic floor in stable condition postoperatively for pain control and mobilization with physical therapy; they safely and properly performed the ADL tasks demonstrated by PT/OT and met all goals. Pain was controlled with IV pain medication, with a transition to oral medications. Normal return of bowel and bladder function. They worked with therapy, vital signs were acceptable, no need for transfusion, drain was discontinued, and they were deemed safe for discharge. Patient was then discharged home in stable condition on POD #3, with self-care and assistance from his . Patient will follow-up with Dr. Wolf in the orthospine clinic in approximately 2 weeks, as scheduled, for postoperati ve care. PG Care Time/CCT Total # of Minutes Spent Total Time Spent with Patient: Total time spent is greater than 50% in coordination of care (as documented) at patient's floor/unit and/or counseling patient: Discharge Plan Discharge Items Patient Disposition: Home - Self-Care Reason For Visit: LUMBAR RADICULOPATHY Discharge Diagnosis: s/p L5-S1 TLIF, L5 laminectomy, posterior instrumentation Condition on Discharge: Good Activity: Per Instructions section Lifting: No more than 10 pounds Bathing: May shower/bathe in 3 days Weightbearing: Full weightbearing Non-emergency contact: Surgeon Call non-emergency contact if: your pain is worsening, your temperature is above 101, your wound has increased redness and your wound has increased drainage Follow-up/Referrals: Mundo Wolf MD [Surgeon] - (05/28/25 @ 11:30) Chace Lin DO [Primary Care Provider] - Diet: Regular Addtl Attending Provider Instructions: Instructions for FUSION Spine Surgery DO NOT TAKE ANY ANTI-INFLAMMATORY MEDICATIONS (MOTRIN, ALEVE, MOBIC, ETC.) IF YOU HAVE UNDERGONE A LUMBAR, THORACIC, OR CERVICAL FUSION DO NOT TAKE ANY HERBAL SUPPLEMENTS MEDICATIONS: You will be given prescriptions for the following: Oxycodone, Percocet or Hydrocodone - For breakthrough pain. You may also take Tylenol (acetaminophen), 1,000 mg every 6-8 hours as needed. Cyclobenzaprine (Flexeril), Valium (Diazepam), Tizanidine (Zanaflex), or Methocarbamol (Robaxin) For muscle spasms and back pain. Take these medications as needed. They will help the most during your recovery time. Senna-s and Miralax Senna-S twice daily, 17g packet of Miralax with water once daily while taking narcotics. These medications prevent constipation caused by the pain medications. Ondansetron (Zofran) For nausea. Cephalexin (Keflex) or Sulfamethoxazole/trimethoprim (Bactrim). Antibiotic. You are given IV antibiotics while in the hospital; you may or may not be given a prescription for home; this will be decided after surgery. Your pre-surgery prescription medications With the exception of anti- inflammatory medications, blood thinners (Coumadin, Plavix, Eliquis, Pradaxa, etc.), or narcotic pain medications, you may resume your home medications. For the above medications, you will be given specific instructions; you may resume blood thinners 3-4 days after surgery. ACTIVITIES: Walking Walking is mandatory. You need to walk at least once every hour while awake. Walking will help prevent blood clots in your legs and help prevent spasms in your back. Bending/twisting Limit bending at the waist, limit twisting and turning. You will be taught to "log roll" to get out of bed. Avoid athletic activities until further notice. Lifting Do NOT lift more than 5 lbs until further notice. Driving You may drive when you are no longer taking narcotic pain medications, can safely operate the brake/gas/clutch pedals, and can move your head/neck for visibility. Tobacco All tobacco products are strictly prohibited after surgery. Any use will dramatically increase your risk of complications. This includes vapor cigarettes, marijuana, nicotine patches and gums. Bracing/Cervical Collar There is no brace required for thoracic or lumbar s urgery. If you have had a single level cervical fusion, you will be given a soft collar for comfort. Multiple level cervical fusions will receive a hard collar to be worn at all times, except for showering and hygiene, until follow up in clinic. Surgical Dressing Initial operative dressing is to stay on for 2 days; you may change it if it becomes saturated. From then on, change the dressing daily with dry gauze and paper tape. Continue to change dressing until there is no discharge. Once there is no discharge on the dressing, you may leave the incision open to air but make sure to keep it out of the sun. For supplies, stop by any local pharmacy. Any type of gauze dressing is acceptable. Do not put any ointments on the wound. You may shower 48 hours after your surgery. Cover the incision with Saran Wrap and tape the edges to prevent water from contacting the incision. If water contacts the incision, pat dry. No baths or submerging the incision until seen in the clinic at follow up appointment. Next Appointment: If you do not already have one made, you will need to schedule an appointment to see Dr. Wolf about 2 weeks after surgery. To schedule, please call [phone]. QUESTIONS Please contact the office with questions or concerns: [phone] If outside normal business hours, you will be connected with the on-call physician. Pending Studies at Discharge: No Stand-Alone Forms: My [facility], Smoking Cessation Medications and DC Order Prescriptions: New oxycodone 5 mg Tablet 5 - 10 mg PO Q4H PRN (Reason: pain) Qty: 30 0RF Rx Instructions: Con't Tx acetaminophen [Tylenol Extra Strength] 500 mg Tablet 1,000 mg PO Q8H Qty: 0 0RF Continued gabapentin 600 mg tablet 600 mg PO TID Qty: 90 1RF baclofen 10 mg Tablet 10 mg PO TID PRN (Reason: muscle spasm) Qty: 60 0RF Discharge Orders: Discharge Order (Routine); Ordered 05/16/25 Ordered By: Herminio Wilson Admission Data Admit Date/Time: 05/12/25 03:29 Attending Provider: Herminio Wilson Admit Provider: Fernando Ross Primary Care Provider: Chace Lin Other Providers: Celso Martin; Roland Disla; Ramila Cat; Alex Mckeon; Mundo Hernandez; Karol Marques; Mundo Wolf
[2025-05-16 13:34] VITALS: BP 128/82
--- NOTE | 2025-05-16 14:57 | Discharge Summary ---
Discharge Summary Date of Service May 16, 2025 Principal Dx & Hospital Course #1 = Principal Diagnosis (1) Lumbar radiculopathy: (2) Right foot pain: (3) Paresthesia of right foot: (4) Lumbosacral disc herniation: Plan This is a 35-year-old male who presents on 05/11 for lumbar radiculopathy and right foot paresthesias/pain. #Lumbar radiculopathy/right-sided sciatica - MRI-Lumbar Spine (05/11/25) Advanced disc degeneration at L5-S1 with annular disc bulge and superimposed 8.6 mm right disc protrusion posteriorly displacing and impinging the transiting right S1 nerve root in the subarticular recess. Note: Compared to prior MRI of the lumbar spine from April 03, 2025, there is been interval decrease in size of the right disc herniation at L5-S1 from 1.3 cm to 0.85 cm Pain management as follows: - Continue gabapentin 600 mg TID - Continue baclofen 10 mg p.o. TID - oxycodone and tylenol. - Orthospine consult appreciated s/p L5-S1 transforaminal lumbar interbody fusion with Dr. Wolf on 05/13 reviewed cbc, no signifcant anemia, no signs of infection #Hyperbilirubinemia - Chronic, incidental, possibly due to physiological stress - bilrruibin is showing improvement. Admission HPI Per Admitting Provider Patient is a 35 yo M w/ a PMHx of lumbar radiculopathy (s/p lumbar discectomy), w/ associated Sx such as r. foot paresthesia and pain, lumbosacral disc degeneration and disc herniation noted on previous imaging, and chewing tobacco- dependence, presenting today w/ poorly controlled back pain radiating down r. leg. Patient has been taking gabapentin, 600 mg, PO, TID; baclofen, 10 mg, PO, TID; and methylprednisolone, 4mg, PO, daily. He was also prescribed a week-long course of oxycodone-acetaminophen (5-325 mg), 6 tabs daily, for 7 days but states he only took one of those pills. Patient denies any back pain but does endorse r. lateral and r. dorsal foot pain, paresthesias (burning, stabbing sensation); this pain starts around the [place] heel area. Patient also endorses some r. thigh posterior pain. His pain does seem to be somewhat position- dependent, worsening when sitting or with his spine in a flexed posture. He notes very little improvement of the pain after surgery and possibly some worsening of that pain over the last few weeks. Discharge Exam GENERAL: 35 yo well-nourished WM. No distress. EXTREMITIES: No edema. SKIN: Warm, dry, intact. No rashes or lesions. Discharge Plan Discharge Items Patient Disposition: Home - Self-Care Reason For Visit: LUMBAR RADICULOPATHY Discharge Diagnosis: s/p L5-S1 TLIF, L5 laminectomy, posterior instrumentation Condition on Discharge: Good Activity: Per Instructions section Lifting: No more than 10 pounds Bathing: May shower/bathe in 3 days Weightbearing: Full weightbearing Non-emergency contact: Surgeon Call non-emergency contact if: your pain is worsening, your temperature is above 101, your wound has increased redness and your wound has increased drainage Follow-up/Referrals: Mundo Wolf MD [Surgeon] - (05/28/25 @ 11:30) Chace Lin DO [Primary Care Provider] - Diet: Regular Addtl Attending Provider Instructions: Instructions for FUSION Spine Surgery DO NOT TAKE ANY ANTI-INFLAMMATORY MEDICATIONS (MOTRIN, ALEVE, MOBIC, ETC.) IF YOU HAVE UNDERGONE A LUMBAR, THORACIC, OR CERVICAL FUSION DO NOT TAKE ANY HERBAL SUPPLEMENTS MEDICATIONS: You will be given prescriptions for the following: Oxycodone, Percocet or Hydrocodone - For breakthrough pain. You may also take Tylenol (acetaminophen), 1,000 mg every 6-8 hours as needed. Cyclobenzaprine (Flexeril), Valium (Diazepam), Tizanidine (Zanaflex), or Methocarbamol (Robaxin) For muscle spasms and back pain. Take these medications as needed. They will help the most during your recovery time. Senna-s and Miralax Senna-S twice daily, 17g packet of Miralax with water once daily while taking narcotics. These medications prevent constipation caused by the pain medications. Ondansetron (Zofran) For nausea. Cephalexin (Keflex) or Sulfamethoxazole/trimethoprim (Bactrim). Antibiotic. You are given IV antibiotics while in the hospital; you may or may not be given a prescription for home; this will be decided after surgery. Your pre-surgery prescription medications With the exception of anti-inflammatory medications, blood thinners (Coumadin, Plavix, Eliquis, Pradaxa, etc.), or narcotic pain medications, you may resume your home medications. For the above medications, you will be given specific instructions; you may resume blood thinners 3-4 days after surgery. ACTIVITIES: Walking Walking is mandatory. You need to walk at least once every hour while awake. Walking will help prevent blood clots in your legs and help prevent spasms in your back. Bending/twisting Limit bending at the waist, limit twisting and turning. You will be taught to "log roll" to get out of bed. Avoid athletic activities until further notice. Lifting Do NOT lift more than 5 lbs until further notice. Driving You may drive when you are no longer taking narcotic pain medications, can safely operate the brake/gas/clutch pedals, and can move your head/neck for visibility. Tobacco All tobacco products are strictly prohibited after surgery. Any use will dramatically increase your risk of complications. This includes vapor cigarettes, marijuana, nicotine patches and gums. Bracing/Cervical Collar There is no brace required for thoracic or lumbar surgery. If you have had a single level cervical fusion, you will be given a soft collar for comfort. Multiple level cervical fusions will receive a hard collar to be worn at all times, except for showering and hygiene, until follow up in clinic. Surgical Dressing Initial operative dressing is to stay on for 2 days; you may change it if it becomes saturated. From then on, change the dressing daily with dry gauze and paper tape. Continue to change dressing until there is no discharge. Once there is no discharge on the dressing, you may leave the incision open to air but make sure to keep it out of the sun. For supplies, stop by any local pharmacy. Any type of gauze dressing is acceptable. Do not put any ointments on the wound. You may shower 48 hours after your surgery. Cover the incision with Saran Wrap and tape the edges to prevent water from contacting the incision. If water contacts the incision, pat dry. No baths or submerging the incision until seen in the clinic at follow up appointment. Next Appointment: If you do not already have one made, you will need to schedule an appointment to see Dr. Wolf about 2 weeks after surgery. To schedule, please call [phone]. QUESTIONS Please contact the office with questions or concerns: [phone] If outside normal business hours, you will be connected with the on-call physician. Pending Studies at Discharge: No Stand-Alone Forms: [facility], Smoking Cessation Medications and DC Order Prescriptions: New acetaminophen [Tylenol Extra Strength] 500 mg Tablet 1,000 mg PO Q8H Qty: 0 0RF oxycodone 5 mg Tablet 5 - 10 mg PO Q4H PRN (Reason: pain) Qty: 30 0RF Rx Instructions: Con't Tx Continued gabapentin 600 mg tablet 600 mg PO TID Qty: 90 1RF baclofen 10 mg Tablet 10 mg PO TID PRN (Reason: muscle spasm) Qty: 60 0RF Discharge Orders: Discharge Order (Routine); Ordered 05/16/25 Ordered By: Herminio Wilson Admission Data Admit Date/Time: 05/12/25 03:29 Attending Provider: Herminio Wilson Admit Provider: Fernando Ross Primary Care Provider: Chace Lin Other Providers: Celso Martin; Roland Disla; Ramila Cat; Alex Mckeon; Mundo Hernandez; Karol Marques; Mundo Wolf Other Interventions: Discharge Summary Assessment (RN) Last Done: 05/16/25 13:33 Hospital Stay Data Consultations 05/12/25 01:38 ED Decision to Admit Stat 05/12/25 03:50 Consult Pain Management Routine 05/12/25 04:17 Consult Orthopedic Spine Surgery Routine Procedures Performed Operation Date: 05/13/25 08:50 Actual Procedures p L5-S1 Transforaminal Lumbar Interbody Fusion, Spinal Cord Monitoring(Not Applicable) - Mundo Wolf MD Diagnostic Imagining Performed 05/11/25 22:38 MR lumbar spine wo con Stat 05/13/25 08:50 CT lumbar spine wo con Routine [place] lumbar spine 2-3V Routine Pending Results Patient Have Any Pending Studies at Discharge: No Discharge Instructions Given to Patient (Per Discharging Provider) Instructions for FUSION Spine Surgery DO NOT TAKE ANY ANTI-INFLAMMATORY MEDICATIONS (MOTRIN, ALEVE, MOBIC, ETC.) IF YOU HAVE UNDERGONE A LUMBAR, THORACIC, OR CERVICAL FUSION DO NOT TAKE ANY HERBAL SUPPLEMENTS MEDICATIONS: You will be given prescriptions for the following: Oxycodone, Percocet or Hydrocodone - For breakthrough pain. You may also take Tylenol (acetaminophen), 1,000 mg every 6-8 hours as needed. Cyclobenzaprine (Flexeril), Valium (Diazepam), Tizanidine (Zanaflex), or Methocarbamol (Robaxin) For muscle spasms and back pain. Take these medications as needed. They will help the most during your recovery time. Senna-s and Miralax Senna-S twice daily, 17g packet of Miralax with water once daily while taking narcotics. These medications prevent constipation caused by the pain medications. Ondansetron (Zofran) For nausea. Cephalexin (Keflex) or Sulfamethoxazole/trimethoprim (Bactrim). Antibiotic. You are given IV antibiotics while in the hospital; you may or may not be given a prescription for home; this will be decided after surgery. Your pre-surgery prescription medications With the exception of anti- inflammatory medications, blood thinners (Coumadin, Plavix, Eliquis, Pradaxa, etc.), or narcotic pain medications, you may resume your home medications. For the above medications, you will be given specific instructions; you may resume blood thinners 3-4 days after surgery. ACTIVITIES: Walking Walking is mandatory. You need to walk at least once every hour while awake. Walking will help prevent blood clots in your legs and help prevent spasms in your back. Bending/twisting Limit bending at the waist, limit twisting and turning. You will be taught to "log roll" to get out of bed. Avoid athletic activities until further notice. Lifting Do NOT lift more than 5 lbs until further notice. Driving You may drive when you are no longer taking narcotic pain medications, can safely operate the brake/gas/clutch pedals, and can move your head/neck for visibility. Tobacco All tobacco products are strictly prohibited after surgery. Any use will dramatically increase your risk of complications. This includes vapor cigarettes, marijuana, nicotine patches and gums. Bracing/Cervical Collar There is no brace required for thoracic or lumbar surgery. If you have had a single level cervical fusion, you will be given a soft collar for comfort. Multiple level cervical fusions will receive a hard collar to be worn at all times, except for showering and hygiene, until follow up in clinic. Surgical Dressing Initial operative dressing is to stay on for 2 days; you may change it if it becomes saturated. From then on, change the dressing daily with dry gauze and paper tape. Continue to change dressing until there is no discharge. Once there is no discharge on the dressing, you may leave the incision open to air but make sure to keep it out of the sun. For supplies, stop by any local pharmacy. Any type of gauze dressing is acceptable. Do not put any ointments on the wound. You may shower 48 hours after your surgery. Cover the incision with Saran Wrap and tape the edges to prevent water from contacting the incision. If water contacts the incision, pat dry. No baths or submerging the incision until seen in the clinic at follow up appointment. Next Appointment: If you do not already have one made, you will need to schedule an appointment to see Dr. Wolf about 2 weeks after surgery. To schedule, please call [phone]. QUESTIONS Please contact the office with questions or concerns: [phone] If outside normal business hours, you will be connected with the on-call physician. Total Time Total Time Spent Total Time Spent (In Minutes): 32 Coding Level of Care Code 16432 INP/OBS DISCH >30 MIN Diagnoses Lumbar radiculopathy M54.16 Right foot pain M79.671 Paresthesia of right foot R20.2 Lumbosacral disc herniation M51.27
== END 2025-05-16 14:05 | disposition home or self-care (01) | DRG 402 ==
LOC: ED 22:17 → 3N 05-12 03:29 → SUATTDRO 05-12 03:29 → 3N 05-12 05:29